=== PATIENT | male | born 1960 | race Caucasian/White ===

== ENCOUNTER 2022-01-06 13:09 | Emergency (ER) | payer OTHER, SELFPAY ==
--- NOTE | 2022-01-06 13:14 | XR_ITS ---
WS: [id number] Exam: XR ankle LT min 3V* [id number] Date/Time of Exam: 01/06/2022 1:19 PM Reason For Exam: trauma/injury There is a comminuted displaced fracture of the lower fibula with medial subluxation of the tibia upo n the talar dome. No other obvious fractures are noted. Soft tissue swelling and deformity about the ankle. XR/XR ankle LT min 3V* [id number] IMPRESSION: 1. Comminuted displaced lower fibular fracture with medial subluxation of the t ibia upon the talar dome.
[2022-01-06 13:34] VITALS: BP 120/80; PULSE 73; RESP 18; O2SAT 95; BMI 30.1
--- NOTE | 2022-01-06 13:37 | W.ED.LOWEXIN ---
Documented by User: ANTHONY Long 01/06/22 16:39 HPI - Extremity Injury (Lower) General: Chief Complaint: Fall Stated Complaint: L ANKLE DEFORMITY Time Seen by Provider: 01/06/22 13:14 Source: patient and EMS Mode of arrival: EMS Limitations: no limitations History of Present Illness: Patient is a nice 61-year-old male who presents to ED today for evaluation of a left ankle injury that he sustained just prior to arrival. Patient states he was walking when he got a little lightheaded causing him to trip and fall and states he got his left ankle caught between the washer and dryer. Reports obvious deformity to the ankle. Patient states he has had previous history of lightheadedness. He states he does not want any evaluation for this and just wants my ankle taking care of . Patient is not having any chest pain or shortness of breath. No palpitations. Patient is not having any lightheadedness or dizziness currently. MD complaint: ankle injury Onset (ago): hour(s) Injury: Left: ankle Place: home Severity: severe Relieving factors: immobilization Exacerbating factors: weight bearing, movement and palpation Context: fall Associated symptoms: Reports inability to bear weight Other symptoms: none Treatments prior to arrival: splint Review of Systems Const: Denies: fever(s), chills, body aches, fatigue or malaise Eyes: Denies: change in vision or blurry vision Card: Reports: lightheadedness (resolved now); Denies: chest pain, palpitations, irregular heart rhythm, edema, swelling of feet/ankles, syncope, pre-syncope, dyspnea on exertion, orthopnea, leg pain with exertion or acrocyanosis Resp: Denies: dyspnea GI: Denies: abdominal pain, nausea or vomiting Musc: Reports: joint pain (L ankle) and joint swelling (L ankle); Denies: neck pain, back pain, extremity pain or extremity swelling Neuro: Denies: headache(s), numbness in extremities, weakness in extremities or sensory changes [facility] ED PFSH: Medical History Diabetes mellitus Surgical History No pertinent past surgical history Social History Smoking and tobacco status: current every day smoker Physical Exam Const: COMMON NORMALS: no acute distress, average body habitus, patient oriented x3, no limitations, alert and well nourished ORIENTATION/CONSCIOUSNESS: Yes awake, Yes oriented to person, Yes oriented to place and Yes oriented to time HENMT: COMMON NORMALS: normocephalic and atraumatic HEAD & SCALP: normal to inspection, normocephalic and atraumatic Resp: COMMON NORMALS: normal respiratory effort and clear to auscultation bilaterally AUSCULTATION: clear to auscultation bilaterally Cardio: COMMON NORMALS: regular rate and regular rhythm RATE: regular rate RHYTHM: regular rhythm Back/Pelvis: COMMON NORMALS: thoracic and lumbar spine normal to inspection, no thoracic nor lumbar tenderness and thoraco-lumbar ROM normal Extremity: GENERAL: Yes normal exam except as noted LEFT LOWER EXTREMITY: Yes ankle joint (obvious deformity to medial L ankle) Left ankle: Yes ROM (limited due to deformity ) and Yes neurovascular exam (normal) Neuro: SHANE COMA SCALE: document GCS findings Shane coma scale eye opening: Spontaneous Paterson coma scale verbal response: Orientated Shane coma scale motor response: Obey commands Paterson coma scale total score: 15 COMMON NORMALS: patient oriented x3, moves all extremities, no focal motor deficits and no sensory deficits noted SENSORIUM/ORIENTATION: Yes alert, Yes oriented to person, Yes oriented to place and Yes oriented to time Procedures Orthopedic Joint Reduction Joint #1: Time Out Performed: Yes Side: left Joint Reduction Location: ankle Analgesia: procedural sedation (please refer to Dr. Chavez procedural sedation note) Technique used: traction/counter-traction Post-reduction neuro exam: intact Post-reduction vascular: intact Post Reduction X-Ray Obtained: Yes Post Reduction X-Ray Results: reduced Splint Applied: Yes Patient Tolerated Procedure: well Orthopedic Splinting/Casting Injury #1: Side: left Lower Extremity Injury Location: ankle Lower Extremity Immobilizer: posterior splint and stirrup splint Other Orthopedic Equipment: crutches Course Vital Signs: Vital signs: Vital Signs Pulse Rate 78 01/06/22 16:48 Respiratory Rate 25 H 01/06/22 16:48 Blood Pressure 125/86 01/06/22 16:48 Pulse Oximetry 99 01/06/22 16:48 MDM - Extremity Injury (Lower) Medical Decision Making Patient here with a left distal fibular fracture and tibial talar medial dislocation. Conscious sedation and reduction performed along with Dr. Chavez. Dislocation reduced in better alignment of fracture noted. Patient will be placed in a posterior splint/stirrup and given crutches and instructions for nonweightbearing, ice, elevation and we will get him set up with orthopedics/podiatry as soon as possible for further evaluation. Lab Data : 01/06/22 15:01 01/06/22 15:01 Radiology Impressions Ankle X-Ray 01/06/22 15:45 IMPRESSION: 1. Reduction of talotibial subluxation. Fracture distal fibula show significant improvement in position and alignment when compared to initial fracture radiographs. Laboratory Results WBC 10.9 10^3/uL (4.0-10.0) H 01/06/22 15:01 RBC 4.65 10^6/uL (4.1-5.3) 01/06/22 15:01 Hgb 14.2 g/dL (11.7-16.6) 01/06/22 15:01 Hct 45.4 % (42.0-52.0) 01/06/22 15:01 MCV 97.6 fl (80-94) H 01/06/22 15:01 MCH 30.5 pg (28.0-34.0) 01/06/22 15:01 MCHC 31.3 g/dL (30.0-36.0) 01/06/22 15:01 RDW 12.2 % (12.1-15.1) 01/06/22 15:01 Plt Count 366 10^3/cmm (130-400) 01/06/22 15:01 MPV 10.9 fL (7.4-10.4) H 01/06/22 15:01 Neut % (Auto) 50.0 % 01/06/22 15:01 Lymph % (Auto) 39.7 % 01/06/22 15:01 [place] % (Auto) 6.7 % 01/06/22 15:01 Eos % (Auto) 2.4 % 01/06/22 15:01 Baso % (Auto) 0.6 % 01/06/22 15:01 Neut # (Auto) 5.47 10^3/uL (1.8-7.7) 01/06/22 15:01 Lymph # (Auto) 4.3 10^3/uL (0.8-4.8) 01/06/22 15:01 [place] # (Auto) 0.7 10^3/uL (0.2-0.9) 01/06/22 15:01 Eos # (Auto) 0.3 10^3/uL (0.0-0.8) 01/06/22 15:01 Baso # (Auto) 0.1 10^3/uL (0.0-0.1) 01/06/22 15:01 Nucleated RBC % (auto) 0 % 01/06/22 15:01 Nucleated RBCs # 0.0 /100WBC 01/06/22 15:01 Sodium 136 mmol/L (136-145) 01/06/22 15:01 Potassium 4.3 mmol/L (3.5-5.1) 01/06/22 15:01 Chloride 98 mmol/L (98-107) 01/06/22 15:01 Carbon Dioxide 24 mmol/L (22-29) 01/06/22 15:01 Anion Gap 18.3 (5-19) 01/06/22 15:01 BUN 17 mg/dL (8-23) 01/06/22 15:01 Creatinine 1.3 mg/dL (0.7-1.2) H 01/06/22 15:01 GFR Calculation 56.3 mL/min (90-130) L 01/06/22 15:01 Glucose 187 mg/dL (65-115) H 01/06/22 15:01 Calculated Osmolality 288 mOsm/kg (285-295) 01/06/22 15:01 Calcium 10.2 mg/dL (8.5-10.5) 01/06/22 15:01 Total Bilirubin 0.2 mg/dL (0.15-1.2) 01/06/22 15:01 AST 18 U/L (0-40) 01/06/22 15:01 ALT 31 U/L (0-41) 01/06/22 15:01 Alkaline Phosphatase 75 IU/L (40-130) 01/06/22 15:01 Total Protein 7.9 g/dL (6.6-8.7) 01/06/22 15:01 Albumin 5.0 g/dL (3.5-5.2) 01/06/22 15:01 Globulin 2.9 g/dL (1.3-4.6) 01/06/22 15:01 Discharge Plan Discharge Patient Disposition: Home Clinical Impression: Closed dislocation of distal end of left tibia, Closed fracture of distal end of left fibula Condition: Stable Prescriptions: New hydrocodone-acetaminophen 5-325 mg tablet 1 tab PO .q4-6 PRN (Reason: pain) Qty: 20 0RF No Action Unable to Assess 0RF Discharge Orders: Discharge ED (Routine); Ordered 01/06/22 Ordered By: Merlene Villa Patient Instructions: Ankle Fracture (DC), Ankle Dislocation (ED), Opioid Safety Activity Restrictions/Additional Instructions: No weight bearing on extremity. As we discussed you need to ice and elevate your extremity as much as possible. Case management should contact you shortly to set you up with your follow-up orthopedic/podiatry appointment. You may take pain medications as needed for discomfort. Coding Level of Care Code ED Reinforcing Metal Worker for Chg Fwd Exam Detailed Documented by User: Gal Chavez DO 01/06/22 21:41 HPI - Extremity Injury (Lower) General: Chief Complaint: Fall Stated Complaint: L ANKLE DEFORMITY Time Seen by Provider: 01/06/22 13:14 [facility] ED PFSH: Medical History Diabetes mellitus Surgical History No pertinent past surgical history Social History Smoking and tobacco status: current every day smoker Physical Exam Neuro: SHANE COMA SCALE: document GCS findings Shane coma scale total score: 15 Procedures Procedural Sedation Indication: fracture/dislocation reduction Preparation: piped buttonhole machine operator applied, pulse oximeter, capnometry used, supplemental O2 applied, reversal agents at bedside, suction/airway equipment at bedside and IV secured IV Etomidate dose (mg): 15 Patient Tolerated Procedure: well Complications: none Additional Comments: Patient initially given 10 mg and then a subsequent 5 more milligrams because of discomfort tolerated well without complication. Oxygen and capnometry were placed on patient prior to the procedure and removed after the procedure was completed. Patient recovered without incident Course Vital Signs: Vital signs: Vital Signs Pulse Rate 78 01/06/22 16:48 Respiratory Rate 25 H 01/06/22 16:48 Blood Pressure 125/86 01/06/22 16:48 Pulse Oximetry 99 01/06/22 16:48 MDM - Extremity Injury (Lower) Medical Decision Making Patient here with a left distal fibular fracture and tibial talar medial dislocation. Conscious sedation and reduction performed along with Dr. Chavez. Dislocation reduced in better alignment of fracture noted. Patient will be placed in a posterior splint/stirrup and given crutches and instructions for nonweightbearing, ice, elevation and we will get him set up with orthopedics/podiatry as soon as possible for further evaluation. Chart reviewed and patient discussed with midlevel. Agree with assessment and plan. I performed conscious sedation on the patient see notes in the procedure. I also supervised and assisted with the reduction with ANTHONY Long. Lab Data : 01/06/22 15:01 01/06/22 15:01 Radiology Impressions Ankle X-Ray 01/06/22 15:45 IMPRESSION: 1. Reduction of talotibial subluxation. Fracture distal fibula show significant improvement in position and alignment when compared to initial fracture radiographs. Laboratory Results WBC 10.9 10^3/uL (4.0-10.0) H 01/06/22 15:01 RBC 4.65 10^6/uL (4.1-5.3) 01/06/22 15:01 Hgb 14.2 g/dL (11.7-16.6) 01/06/22 15:01 Hct 45.4 % (42.0-52.0) 01/06/22 15:01 MCV 97.6 fl (80-94) H 01/06/22 15:01 MCH 30.5 pg (28.0-34.0) 01/06/22 15:01 MCHC 31.3 g/dL (30.0-36.0) 01/06/22 15:01 RDW 12.2 % (12.1-15.1) 01/06/22 15:01 Plt Count 366 10^3/cmm (130-400) 01/06/22 15:01 MPV 10.9 fL (7.4-10.4) H 01/06/22 15:01 Neut % (Auto) 50.0 % 01/06/22 15:01 Lymph % (Auto) 39.7 % 01/06/22 15:01 [place] % (Auto) 6.7 % 01/06/22 15:01 Eos % (Auto) 2.4 % 01/06/22 15:01 Baso % (Auto) 0.6 % 01/06/22 15:01 Neut # (Auto) 5.47 10^3/uL (1.8-7.7) 01/06/22 15:01 Lymph # (Auto) 4.3 10^3/uL (0.8-4.8) 01/06/22 15:01 [place] # (Auto) 0.7 10^3/uL (0.2-0.9) 01/06/22 15:01 Eos # (Auto) 0.3 10^3/uL (0.0-0.8) 01/06/22 15:01 Baso # (Auto) 0.1 10^3/uL (0.0-0.1) 01/06/22 15:01 Nucleated RBC % (auto) 0 % 01/06/22 15:01 Nucleated RBCs # 0.0 /100WBC 01/06/22 15:01 Sodium 136 mmol/L (136-145) 01/06/22 15:01 Potassium 4.3 mmol/L (3.5-5.1) 01/06/22 15:01 Chloride 98 mmol/L (98-107) 01/06/22 15:01 Carbon Dioxide 24 mmol/L (22-29) 01/06/22 15:01 Anion Gap 18.3 (5-19) 01/06/22 15:01 BUN 17 mg/dL (8-23) 01/06/22 15:01 Creatinine 1.3 mg/dL (0.7-1.2) H 01/06/22 15:01 GFR Calculation 56.3 mL/min (90-130) L 01/06/22 15:01 Glucose 187 mg/dL (65-115) H 01/06/22 15:01 Calculated Osmolality 288 mOsm/kg (285-295) 01/06/22 15:01 Calcium 10.2 mg/dL (8.5-10.5) 01/06/22 15:01 Total Bilirubin 0.2 mg/dL (0.15-1.2) 01/06/22 15:01 AST 18 U/L (0-40) 01/06/22 15:01 ALT 31 U/L (0-41) 01/06/22 15:01 Alkaline Phosphatase 75 IU/L (40-130) 01/06/22 15:01 Total Protein 7.9 g/dL (6.6-8.7) 01/06/22 15:01 Albumin 5.0 g/dL (3.5-5.2) 01/06/22 15:01 Globulin 2.9 g/dL (1.3-4.6) 01/06/22 15:01 Discharge Plan Discharge Patient Disposition: Home Clinical Impression: Closed dislocation of distal end of left tibia, Closed fracture of distal end of left fibula Condition: Stable Prescriptions: New hydrocodone-acetaminophen 5-325 mg tablet 1 tab PO .q4-6 PRN (Reason: pain) Qty: 20 0RF No Action Unable to Assess 0RF Discharge Orders: Discharge ED (Routine); Ordered 01/06/22 Ordered By: Merlene Villa Patient Instructions: Ankle Fracture (DC), Ankle Dislocation (ED), Opioid Safety Activity Restrictions/Additional Instructions: No weight bearing on extremity. As we discussed you need to ice and elevate your extremity as much as possible. Case management should contact you shortly to set you up with your follow-up orthopedic/podiatry appointment. You may take pain medications as needed for discomfort. Coding Level of Care Code ED Reinforcing Metal Worker for Sejal Fwd Exam Detailed
[2022-01-06 13:43] VITALS: RESP 16; O2SAT 96
[2022-01-06] MEDS: morphine 4 mg/mL SDV 1 mL IVP (13:43)
--- NOTE | 2022-01-06 14:38 | ECG_ITS ---
[facility] Test Date: 2022-01-06 Pat Name: Ismael Richards Department: Room: Gender: Male Medical Appointment Clerk: : 1960 Requested By: Merlene Villa Order Number: [id number] England MD: Mauri Mulligan M.D. Measurements Intervals [place] Rate: 74 P: 58 [place]: 172 QRS: 64 QRSD: 106 T: 69 QT: 374 QTc: 416 Interpretive Statements SINUS RHYTHM WITH SINUS ARRHYTHMIA Compared to ECG 06/08/2019 15:27:15 No significant changes Electronically Signed On 01-06-2022 20:20:40 CDT by Mauri Mulligan M.D. [email or web address]
[2022-01-06 15:12] LABS: Basophils # 0.1 10^3/uL (0.0-0.1); Basophils % 0.6 %; Eosinophils # 0.3 10^3/uL (0.0-0.8); Eosinophils % 2.4 %; Hematocrit 45.4 % (42.0-52.0); Hemoglobin 14.2 g/dL (11.7-16.6); Lymphocytes # 4.3 10^3/uL (0.8-4.8); Lymphocytes % 39.7 %; Mean Corpuscular HGB Conc 31.3 g/dL (30.0-36.0); Mean Corpuscular Hemoglobin 30.5 pg (28.0-34.0); Mean Corpuscular Volume 97.6 fl (80-94); Mean Platelet Volume 10.9 fL (7.4-10.4); Monocytes # 0.7 10^3/uL (0.2-0.9); Monocytes % 6.7 %; Neutrophils # 5.47 10^3/uL (1.8-7.7); Nucleated Red Blood Cells % 0 %; Platelet Count 366 10^3/cmm (130-400); Red Blood Count 4.65 10^6/uL (4.1-5.3); Red Cell Distribution Width 12.2 % (12.1-15.1); White Blood Count 10.9 10^3/uL (4.0-10.0)
--- NOTE | 2022-01-06 15:45 | XR_ITS ---
WS: [id number] Exam: XR ankle LT 2V [id number] Date/Time of Exam: 01/06/2022 3:52 PM Reason For Exam: fracture Comparison same day at 0148 p.M. Previously noted fractured fibula shows a improved position and alignment. Talotibial subluxation has been reduced. Soft tissue swelling about the ankle. XR/XR ankle LT 2V [id number] IMPRESSION: 1. Reduction of talotibial subluxation. Fracture distal fibula show significant improvement in position and alignment when compared to initial fracture radiog raphs.
--- NOTE | 2022-01-06 16:09 | DCPLANNER ---
Addendum entered by Claudia Pulido 01/08/22 12:58: Patient had a follow up appointment scheduled for 01.07.[address] Foster at ortho - patient did attend appointment. Original Note: manager personal had message to schedule a follow up appointment for patient with ortho. manager personal sent patients information to the front office staff at ortho. Patients information will be printed and reviewed. Clinic will call patient with appointment information.
[2022-01-06 16:23] VITALS: BP 126/83; PULSE 82; RESP 22; O2SAT 96
--- NOTE | 2022-01-06 16:42 | PC.NURSE ---
Left ankle Reduction Procedure began at 1535 Vital Signs: HR- 80 SPO2- 99% RR- 27, 2L NC BP- 129/83 1539 10mg etomidate 1540 5mg HR- 92 SPO2- 95% 2L NC RR-28 BP- 138/91 1545 BP- 125/86 HR-78 SPO2- 98% 2L NC RR- 25 Patient awoke from sedation, condition stable. Patient was discharged after
[2022-01-06 16:48] VITALS: BP 125/86; PULSE 78; RESP 25; O2SAT 99
[2022-01-06 16:55] LABS: Alanine Aminotransferase 31 U/L (0-41); Alkaline Phosphatase 75 IU/L (40-130); Anion Gap 18.3 (5-19); Aspartate Amino Transferase 18 U/L (0-40); Blood Urea Nitrogen 17 mg/dL (8-23); Calcium 10.2 mg/dL (8.5-10.5); Carbon Dioxide 24 mmol/L (22-29); Chloride 98 mmol/L (98-107); Globulin 2.9 g/dL (1.3-4.6); Glomerular Filtration Rate 56.3 mL/min (90-130); Glucose 187 mg/dL (65-115); Osmolality Calculated 288 mOsm/kg (285-295); Potassium 4.3 mmol/L (3.5-5.1); Sodium 136 mmol/L (136-145); Total Bilirubin 0.2 mg/dL (0.15-1.2); Total Protein 7.9 g/dL (6.6-8.7)
== END 2022-01-06 16:51 | disposition home or self-care (01) ==
PROVIDERS: Emergency Provider Physician Assistant
DX: S82.832A Other fracture of upper and lower end of left fibula, initial encounter for closed fracture (principal); S93.05XA Dislocation of left ankle joint, initial encounter; W01.0XXA Fall on same level from slipping, tripping and stumbling without subsequent striking against object, initial encounter
CPT/HCPCS: 27840; 73600; 73610; 80053; 85025; 93005; 96374; 96375; 99152; 99284; E0114; J2270; J3490

== ENCOUNTER → 2022-01-07 09:15 | Outpatient (BNVA) | payer OTHER, SELFPAY | PROVIDERS: Referring Provider Physician Assistant; Visit Provider Podiatrist Foot & Ankle Surgery | DX: S82.842A Displaced bimalleolar fracture of left lower leg, initial encounter for closed fracture (principal); W19.XXXA Unspecified fall, initial encounter; M25.572 Pain in left ankle and joints of left foot | CPT/HCPCS: 99204 ==

== ENCOUNTER 2022-01-07 14:50 | Outpatient (CLI) | payer OTHER, SELFPAY | END 2022-01-07 14:51 | disposition home or self-care (01) | LOC: SPT 14:50 | PROVIDERS: Visit Provider Podiatrist Foot & Ankle Surgery | DX: Z46.89 Encounter for fitting and adjustment of other specified devices (principal); S93.05XD Dislocation of left ankle joint, subsequent encounter; S82.832D Other fracture of upper and lower end of left fibula, subsequent encounter for closed fracture with routine healing; X58.XXXD Exposure to other specified factors, subsequent encounter | CPT/HCPCS: 97760; 99204; L4361 ==

== ENCOUNTER 2022-01-15 07:17 | Day surgery (SDC) | payer OTHER, SELFPAY ==
[2022-01-14 10:18] VITALS: BMI 30.1
[2022-01-15] VITALS (11 sets, daily range): BP systolic 119–149; BP diastolic 77–100; PULSE 67–84; RESP 16–18; TEMP 36.2–37; O2SAT 91–97
--- NOTE | 2022-01-15 | SCC_ITS ---
Procedure done: Open reduction internal fixation left bimalleolar fracture. CPT 72179 2 seconds of fluoroscopic guidance, for a cumulative dose of 0.058 mGy, was provided to Dr. Foster by the radiology department. C-arm images of the LEFT ankle were saved for the patient's permanent record. [facility]
[2022-01-15] MEDS: sodium chloride 0.9% 1,000 ML 30 ML IV (07:42)
[2022-01-15 07:53] LABS: Glucose Point of Care 235 mg/dL (70-110)
[2022-01-15 08:18] LABS: Anion Gap 14.8 (5-19); Blood Urea Nitrogen 19 mg/dL (8-23); Calcium 9.8 mg/dL (8.5-10.5); Carbon Dioxide 27 mmol/L (22-29); Chloride 99 mmol/L (98-107); Glucose 238 mg/dL (65-115); Osmolality Calculated 292 mOsm/kg (285-295); Potassium 4.8 mmol/L (3.5-5.1); Sodium 136 mmol/L (136-145)
[2022-01-15] MEDS: fentaNYL 50 mcg/mL INJ 2mL IVP ×3 (08:57→09:17)
--- NOTE | 2022-01-15 09:16 | W.PM.OPSUD ---
Surgery/Procedure H&P Update DATE OF PROCEDURE: January 15, 2022 DATE H&P PERFORMED: 01/07/22 CHANGES TO PREVIOUS DOCUMENTATION: None PREOP DIAGNOSIS: Left bimalleolar fracture PLANNED PROCEDURE: Operation Date: 01/15/22 08:55 Proposed Procedures p Open reduction internal fixation left bimalleolar fracture- S82.841A 72500(Left) - Ab Foster DPM
--- NOTE | 2022-01-15 09:22 | SUR.PREOP ---
0915-timeout was performed at bedside with Dr Kimbrough, nerve block was performed and patient tolerated well
--- NOTE | 2022-01-15 09:32 | ANES.PREANE2 ---
Pre-Anesthetic Assessment Height/Weight: Height 1.78 m Weight 95.254 kg Temp Pulse Resp BP Pulse Ox 98.6 F 84 18 134/91 95 01/15/22 08:01 01/15/22 08:01 01/15/22 08:57 01/15/22 08:01 01/15/22 08:57 Preop Diagnosis: Left bimalleolar fracture Operation Date: 01/15/22 08:55 Proposed Procedures p Open reduction internal fixation left bimalleolar fracture- S82.871Z, 88662(Left) - Ab Foster DPM Familial anesthetic complications: None Was Beta Mahogany taken within 24 hours: N/A Was Clonidine taken within 24 hours: N/A Last intake: Intake Last Liquid Date 01/14/22 Last Liquid Time 23:30 Last Solid Date 01/14/22 Last Solid Time 23:30 Social No alcohol and No tobacco Exam alert, oriented x 3, clear to auscultation bilaterally and regular rate & rhythm Airway Submandibular: within normal limits Cervical ROM: within normal limits Mallampati: Class II Dentition: chipped Comments: Comments: Poor missing most Pulmonary Chronic Obstructive Pulmonary Disease Metabolic Diabetes Mellitus, Hyperlipidemia and Morbid Obesity Neuropsych Neuropathy Anesthetic Plan ASA status: 3 Anesthesia: General and Regional (specify below) (Left popliteal nerve blk) Medications/Allergies Home Medications Medication Instructions Recorded Confirmed Last Taken Type hydrocodone 5 mg-acetaminophen 325 1 tab PO .q4-6 PRN #20 tab 01/06/22 01/15/22 01/14/22 23:00 Rx mg tablet Cam Boot to the Left #1 ea 01/07/22 01/07/22 Unknown Rx Wheel Chair #1 ea 01/07/22 01/07/22 Unknown Rx aripiprazole 5 mg tablet (Abilify) 5 mg PO DAILY 01/14/22 01/15/22 01/14/22 23:30 History atorvastatin 40 mg tablet 40 mg PO DAILY 01/14/22 01/15/22 01/14/22 17:00 History doxepin 50 mg capsule 50 mg PO DAILY 01/14/22 01/15/22 01/14/22 19:00 History duloxetine 60 mg capsule,delayed 90 mg PO DAILY 01/14/22 01/15/22 01/14/22 06:00 History release glipizide 5 mg tablet 5 mg PO BID 01/14/22 01/15/22 01/14/22 05:30 History metformin 1,000 mg tablet 1,000 mg PO BID 01/14/22 01/15/22 01/14/22 05:30 History mirtazapine 15 mg tablet 15 mg PO DAILY 01/14/22 01/15/22 01/14/22 05:30 History Allergies Allergy/AdvReac Type Severity Reaction Status Date / Time No Known Allergies Allergy Verified 01/15/22 07:34 Current Medications Generic Name Dose Route Start Last Admin Trade Name Freq PRN Reason Stop Dose Admin Fentanyl 50 mcg 01/15/22 08:50 01/15/22 09:17 Fentanyl 50 Mcg/Ml Inj 2ml IVP 50 mcg Q10M PRN Administration Preop Pain PFS Anesthesia Medical History Diabetes mellitus Surgical History No pertinent past surgical history Social History Smoking and tobacco status: current every day smoker Data Anesthesia : 01/15/22 07:50 BMP 01/15/22 07:50 Sodium 136 Potassium 4.8 Chloride 99 Carbon Dioxide 27 BUN 19 Creatinine 1.0 Glucose 238 H Calcium 9.8 Cardiac Studies: No Data to Display
--- NOTE | 2022-01-15 09:34 | ANES.PROC ---
Anesthesia Procedures Procedure/Date: 01/15/22 Nerve Block ^: Nerve Block 1: Main Anesthesia: general anesthesia Time Out Performed: Yes Consent: requested by attending/covering physician, from patient, risks and benefits reviewed and patient agrees to proceed Nerve block location: popliteal (left) Anesthesia monitors applied: pulse oximetry, EKG and BP cuff Nerve block position: semi sitting Anesthetic Used: ropivicaine 0.5% Amount of anesthesia used (mL): 30 Ultrasound used to: recognize landmarks Nerve Stimulator Used?: No Interscalene/Femoral BLK: 4 stimuplex 21 g needle used for position and inplane approach Injection: neg aspiration of heme Patient Tolerated Procedure: well Complications: none
[2022-01-15] MEDS: ceFAZolin 1,000 mg SDV 1000 MG IRRIGATION (10:16)
--- NOTE | 2022-01-15 10:42 | XR_ITS ---
WS: [id number] Left ankle, 3 views, 01/15/2022 Clinical Data: post op Comparison: Left ankle, 01/06/2022. Findings: Internal fixation of a distal left fibular fracture with a plate and screws is seen. The ankle mortis e is in good position. There are subcutaneous surgical ricky adjacent to the distal lateral fibula. XR/XR ankle LT min 3V* [id number] Impression: Internal fixation of distal left fibular fracture.
[2022-01-15] MEDS: HYDROcodone-acetaminophen 10-325 mg Tablet 1 TAB PO (11:27)
--- NOTE | 2022-01-15 11:36 | P.OP_ITS ---
Operative Report Date of procedure: January 15, 2022 Pre-op diagnosis: Left bimalleolar fracture Post-op diagnosis: Same Post-op findings: No syndesmotic disruption with cotton hook test under live fluoroscopy Procedure done: Open reduction internal fixation left bimalleolar fracture. CPT 62621 Implants: [place] anatomic fibular plate and 3.5 mm locking screws, 2-0 Vicryl, 3-0 Vicryl and skin ricky Specimens removed/disposition: None Surgeon: Ab Foster D.P.M. Healthcare Consultant: Arianna Estimated blood loss: 5 See intraoperative documentation IV fluids: None Urine output: None Complications: None Findings: No syndesmotic disruption Brief History: Left bimalleolar equivalent fracture with dislocation of the talus laterally out of the ankle mortise, successful closed reduction under sedation performed in the emergency department with posterior splint and sugar-tong.? Patient utilizing wheelchair and has remained nonweightbearing.? Fell at home after getting lightheaded and got wedged between the washer and dryer, date of injury 01/06/2022. Patient examined and evaluated, findings and treatment options were discussed with patient and his at length.? He has a unstable bimalleolar equivalent left ankle fracture.? Discussed need for open reduction internal fixation as a means of stabilizing his fracture and maintaining reduction postoperatively.? Not pursuing surgical intervention could lead to long-term instability, nonunion and malunion.? Also discussed high likelihood of posttraumatic arthritis as a result of this injury both with and without surgery.? Patient and his are agreeable and wished to proceed with surgery at next available opportunity.? Will allow soft tissue to resolve and subsidence of edema.? Plan for outpatient ORIF of left ankle fracture 01/15/2022 under general anesthesia.? Risks include but is not limited to pain, bleeding, numbness, infection, hardware failure, delayed union, malunion, nonunion, surgical site dehiscence, posttraumatic arthritis of the left ankle joint and need for further surgical intervention and advanced bracing as well as physical therapy. Procedure: Under mild sedation the patient was brought to the operating room and placed on the operating table in supine position. A timeout was performed. Anesthesia was then administered by the anesthesia service. Also popliteal block performed per anesthesia preoperatively. 0.5% Marcaine plain 5 cc utilized to perform saphenous nerve block. Well-padded pneumatic tourniquet applied high calf to the left lower extremity. The left lower extremity was then scrubbed, prepped and draped utilizing normal aseptic technique. Left foot was then exanguinated with an Esmarch bandage and the tourniquet inflated to 250 mmHg. Linear longitudinal incision was made over the lateral malleolus with a #15 blade with blunt and sharp dissection carried down through subcutaneous tissue to the layer of periosteum. Periosteal incision was made exposing a comminuted fracture of the lateral malleolus left ankle this was evacuated of hematoma utilizing curettage and flush with saline solution. Fracture was reduced anato mically utilizing traction and [id number] fracture reduction forceps followed by fixation utilizing standard AO technique, fixation achieved via [place] anatomic fibular plate with 3.5 mm locking screws with excellent bony apposition and compression noted. Fracture was anatomically reduced, distal fibula was pulled out to length and derotated and noted to be congruent with an ankle mortise without being violated with proper hardware. Cotton hook test employed intraoperatively under live fluoroscopy showed intact syndesmosis without diastases at the tib-fib clear space. Incision was flushed with copious amounts of sterile saline solution. Closed in a layered fashion with periosteum reapproximated with 2-0 Vicryl. Subcutaneous tissue with 3-0 Vicryl and skin with ricky. Adaptic, sterile 4 x 4's, Kerlix and Santo wrap applied as surgical dressings followed by application of cam boot. Tourniquet was deflated and a prompt hyperemic response was noted to the distal digits of the left foot. Patient tolerated the procedure and anesthesia well and was transferred to the PACU with vital signs stable and vascular status intact. Following a period of postoperative monitoring he will be discharged home is to remain strict nonweightbearing to left lower extremity and will follow-up in podiatry clinic next Joe for dressing change.
--- NOTE | 2022-01-15 13:13 | ANE.PACU2 ---
Inpatient post-anesthesia follow up: Airway intact: Yes Vital signs: Temperature 97.5 F Pulse Rate 78 Respiratory Rate 17 Blood Pressure 143/85 Pulse Oximetry 94 Oxygen Delivery Me thod Room Air Oxygen Flow Rate Fraction of Inspir ed Oxygen Hydration adequate: Yes Nausea and vomiting: No Pain level: 3 Mental status: Baseline
== END 2022-01-15 11:44 | disposition home or self-care (01) ==
PROVIDERS: Anesthesiology; Visit Provider Podiatrist Foot & Ankle Surgery
PROC: (CPT 27814; principal; 2022-01-15 08:55)
DX: S82.842A Displaced bimalleolar fracture of left lower leg, initial encounter for closed fracture (principal); W19.XXXA Unspecified fall, initial encounter; Y92.009 Unspecified place in unspecified non-institutional (private) residence as the place of occurrence of the external cause; J44.9 Chronic obstructive pulmonary disease, unspecified; E78.5 Hyperlipidemia, unspecified; E66.01 Morbid (severe) obesity due to excess calories; Z68.30 Body mass index [BMI] 30.0-30.9, adult; E11.40 Type 2 diabetes mellitus with diabetic neuropathy, unspecified; F17.200 Nicotine dependence, unspecified, uncomplicated
CPT/HCPCS: 27814; 36415; 36416; 64450; 73610; 76000; 76942; 80048; 82962; C1713; J0690; J2250; J2405; J2704; J2795; J3010; J3490; J7030

== ENCOUNTER → 2022-01-22 08:42 | Outpatient (BNVA) | payer OTHER, SELFPAY | PROVIDERS: Visit Provider Podiatrist Foot & Ankle Surgery | DX: Z98.890 Other specified postprocedural states (principal) | CPT/HCPCS: 99024; A6219 ==

== ENCOUNTER → 2022-02-04 15:03 | Outpatient (BNVA) | payer OTHER, SELFPAY | PROVIDERS: PCP Nurse Practitioner; Visit Provider Podiatrist Foot & Ankle Surgery | DX: Z98.890 Other specified postprocedural states (principal); S82.842A Displaced bimalleolar fracture of left lower leg, initial encounter for closed fracture; W19.XXXA Unspecified fall, initial encounter; Y92.009 Unspecified place in unspecified non-institutional (private) residence as the place of occurrence of the external cause; M25.572 Pain in left ankle and joints of left foot | CPT/HCPCS: 73610; 99024 ==

== ENCOUNTER → 2022-02-24 14:32 | Outpatient (BNVA) | payer OTHER, SELFPAY | PROVIDERS: PCP Nurse Practitioner; Visit Provider Podiatrist Foot & Ankle Surgery | DX: Z98.890 Other specified postprocedural states (principal); S82.842A Displaced bimalleolar fracture of left lower leg, initial encounter for closed fracture; M25.572 Pain in left ankle and joints of left foot; W19.XXXA Unspecified fall, initial encounter; Y92.009 Unspecified place in unspecified non-institutional (private) residence as the place of occurrence of the external cause | CPT/HCPCS: 73610; 99024 ==

== ENCOUNTER → 2022-03-11 14:01 | Outpatient (BNVA) | payer OTHER, SELFPAY | PROVIDERS: PCP Nurse Practitioner; Visit Provider Podiatrist Foot & Ankle Surgery | DX: M25.572 Pain in left ankle and joints of left foot (principal) | CPT/HCPCS: 73610 ==

== ENCOUNTER 2022-03-11 14:34 | Outpatient (CLI) | payer OTHER, SELFPAY | END 2022-03-11 14:35 | disposition home or self-care (01) | LOC: SPT 14:34 | PROVIDERS: PCP Nurse Practitioner; Visit Provider Podiatrist Foot & Ankle Surgery | DX: Z47.89 Encounter for other orthopedic aftercare (principal); M25.572 Pain in left ankle and joints of left foot; Z98.890 Other specified postprocedural states; S82.842A Displaced bimalleolar fracture of left lower leg, initial encounter for closed fracture; W19.XXXA Unspecified fall, initial encounter; Y92.009 Unspecified place in unspecified non-institutional (private) residence as the place of occurrence of the external cause | CPT/HCPCS: 97760; 99024; L1902 ==

== ENCOUNTER → 2022-04-08 14:24 | Outpatient (BNVA) | payer OTHER, SELFPAY | PROVIDERS: PCP Nurse Practitioner; Visit Provider Podiatrist Foot & Ankle Surgery | DX: Z98.890 Other specified postprocedural states (principal); S82.842D Displaced bimalleolar fracture of left lower leg, subsequent encounter for closed fracture with routine healing; W19.XXXD Unspecified fall, subsequent encounter; Y92.009 Unspecified place in unspecified non-institutional (private) residence as the place of occurrence of the external cause | CPT/HCPCS: 99024 ==

== ENCOUNTER → 2022-08-19 09:01 | Outpatient (BNVA) | payer OTHER, SELFPAY | PROVIDERS: PCP Nurse Practitioner; Visit Provider Urology | DX: N52.9 Male erectile dysfunction, unspecified (principal); E11.40 Type 2 diabetes mellitus with diabetic neuropathy, unspecified | CPT/HCPCS: 81003; 99203 ==

== ENCOUNTER → 2023-03-29 14:16 | Outpatient (BNVA) | payer OTHER, SELFPAY | PROVIDERS: PCP Nurse Practitioner; Visit Provider Dermatology | DX: L57.0 Actinic keratosis (principal); L21.8 Other seborrheic dermatitis; L81.4 Other melanin hyperpigmentation; L82.1 Other seborrheic keratosis; L73.8 Other specified follicular disorders; D22.39 Melanocytic nevi of other parts of face | CPT/HCPCS: 17000; 17003; 99213 ==

== ENCOUNTER → 2023-04-26 09:13 | Outpatient (BNVA) | payer OTHER, SELFPAY | PROVIDERS: PCP Nurse Practitioner; Visit Provider Podiatrist Foot & Ankle Surgery | DX: E11.40 Type 2 diabetes mellitus with diabetic neuropathy, unspecified (principal); Z79.4 Long term (current) use of insulin; L60.3 Nail dystrophy; Z79.84 Long term (current) use of oral hypoglycemic drugs | CPT/HCPCS: 99213 ==

== ENCOUNTER 2023-05-10 06:03 | Outpatient (CLI) | payer OTHER, SELFPAY ==
--- NOTE | 2023-05-10 | US_ITS ---
WS: [id number] RIGHT UPPER QUADRANT ULTRASOUND HISTORY: ELEVATED LFT'S COMPARISON: None available. Liver: 19.8 cm in length. Markedly enlarged liver with variable echogenicity. There is marked attenua tion. The entire liver is not very well visualized due to attenuation. The liver is probably greater than measured. No mass identified. Portal Vein: Normal hepatopetal flow with monophasic waveform. Gallbladder: Normally distended gallbladder with no stones or wall thickening. CBD: 0.3 cm Pancreas: Tail of the pancreas obscured by bowel gas. Right kidney: 12.1 cm in length. Normal size and echogenicity. No hydronephrosis or mass. Aorta and IVC: Unremarkable abdominal aorta and IVC. No ascites. IMPRESSION: 1. Difficult evaluation of the RIGHT upper quadrant due to body habitus. 2. Markedly enlarged liver with severe attenuation secondary to hepatic steatosis. 2. Negative gallbladder. 3. Distal pancreatic tail is not visualized due to bowel gas.
== END 2023-05-10 06:04 | disposition home or self-care (01) ==
LOC: RAD 06:04
PROVIDERS: PCP Nurse Practitioner; Visit Provider Nurse Practitioner
DX: R79.89 Other specified abnormal findings of blood chemistry (principal); K76.0 Fatty (change of) liver, not elsewhere classified; R16.0 Hepatomegaly, not elsewhere classified
CPT/HCPCS: 76705

== ENCOUNTER → 2023-07-12 09:59 | Outpatient (BNVA) | payer OTHER, SELFPAY | PROVIDERS: PCP Nurse Practitioner; Visit Provider Physician Assistant | DX: S83.91XA Sprain of unspecified site of right knee, initial encounter; X58.XXXA Exposure to other specified factors, initial encounter | CPT/HCPCS: 73560; 73565; 99213 ==

== ENCOUNTER 2023-07-12 13:23 | Outpatient (CLI) | payer OTHER, SELFPAY | END 2023-07-12 13:24 | disposition home or self-care (01) | LOC: SPT 13:23 | PROVIDERS: PCP Nurse Practitioner; Visit Provider Physician Assistant | DX: Z46.89 Encounter for fitting and adjustment of other specified devices (principal); S83.91XD Sprain of unspecified site of right knee, subsequent encounter; X58.XXXD Exposure to other specified factors, subsequent encounter | CPT/HCPCS: 97760; L1812 ==

== ENCOUNTER → 2023-08-02 08:16 | Outpatient (BNVA) | payer OTHER, SELFPAY | PROVIDERS: PCP Nurse Practitioner; Visit Provider Podiatrist Foot & Ankle Surgery | DX: E11.40 Type 2 diabetes mellitus with diabetic neuropathy, unspecified (principal); Z79.4 Long term (current) use of insulin; L60.3 Nail dystrophy; I73.9 Peripheral vascular disease, unspecified; L84 Corns and callosities; Z79.84 Long term (current) use of oral hypoglycemic drugs | CPT/HCPCS: 11056; 11721 ==

== ENCOUNTER → 2023-09-15 13:17 | Outpatient (BNVA) | payer OTHER, SELFPAY | PROVIDERS: PCP Nurse Practitioner; Visit Provider Physician Assistant | DX: S83.91XA Sprain of unspecified site of right knee, initial encounter (principal); X58.XXXA Exposure to other specified factors, initial encounter | CPT/HCPCS: 99213 ==

== ENCOUNTER 2023-11-01 20:00 | Outpatient (CLI) | payer OTHER, SELFPAY | END 2023-11-01 20:01 | disposition home or self-care (01) | LOC: SLEEP 11-02 04:53 | PROVIDERS: PCP Nurse Practitioner; Visit Provider Nurse Practitioner | DX: E11.40 Type 2 diabetes mellitus with diabetic neuropathy, unspecified (principal); G47.33 Obstructive sleep apnea (adult) (pediatric); G47.34 Idiopathic sleep related nonobstructive alveolar hypoventilation; L60.3 Nail dystrophy; L84 Corns and callosities; Z79.4 Long term (current) use of insulin; I73.9 Peripheral vascular disease, unspecified; Z79.84 Long term (current) use of oral hypoglycemic drugs | CPT/HCPCS: 11056; 11721; 95810 ==

== ENCOUNTER → 2024-01-31 07:24 | Outpatient (BNVA) | payer OTHER, SELFPAY | PROVIDERS: PCP Nurse Practitioner; Visit Provider Podiatrist Foot & Ankle Surgery | DX: E11.40 Type 2 diabetes mellitus with diabetic neuropathy, unspecified (principal); Z79.4 Long term (current) use of insulin; L60.3 Nail dystrophy; I73.9 Peripheral vascular disease, unspecified; Z79.84 Long term (current) use of oral hypoglycemic drugs | CPT/HCPCS: 99213 ==

== ENCOUNTER 2024-04-11 06:57 | Outpatient (CLI) | payer OTHER, SELFPAY ==
[2024-04-11 07:06] VITALS: BMI 30.1
--- NOTE | 2024-04-11 07:09 | ECG_ITS ---
[facility] Test Date: 2024-04-11 Pat Name: Ismael Richards Department: Room: Gender: Male Assistant Professor Of Business: Yobany Phillips : 1960 Requested By: Kelley Allen Order Number: [id number] Samanta MD: MERI MUHAMMAD Interpretive Statements NAME OF STUDY: LEXISCAN SESTAMIBI STRESS TEST INDICATION: fatigue, weakness on exertion NOTE: Please note that this is the electrocardiogram portion of the Lexiscan/Sestamibi stress test. The perfusion scan will be documented separately. DATA: Baseline heart rate was 61 beats per minute. Baseline blood pressure was 121/79 millimeters of mercury. Target heart rate was 156. Maximum heart rate achieved was 108. which was 56% of the predicted target heart rate. Maximum blood pressure was 149/95 millimeters of mercury. The reason for ending the test was completion of the protocol. The patient did not experience any symptoms. ELECTROCARDIOGRAM: BASELINE: Sinus rhythm. Normal axis. Otherwise, no ST-T changes suggestive of ischemia noted. No arrhythmia noted. EXERCISE: After Lexiscan injection, no ST-T changes suggestive of ischemic noted. No arrhythmia noted. CONCLUSION: Please note due to baseline abnormality of the EKG specificity and sensitivity of the EKG portion of LexiScan MIBI stress test will be low 1. EKG not suggestive of ischemia 2. Lexiscan injection unremarkable. 3. Perfusion scan will be documented separately. Electronically Signed On 04-12-2024 19:37:47 CDT by MERI MUHAMMAD [id number]
--- NOTE | 2024-04-11 07:10 | NMCV_ITS ---
NM michelet perf SPECT r/s* [id number] Ismael Richards Age: 64 Gender: M : 1960 Exam Date: 04/11/2024 07:55 Ordering Phys: Kelley Fritz Technologist: DOROTA Le Exam Location: [facility] Indications: Fatigue.weakness with exertion STRESS TEST Please see separate stress test report in [facility] for full findings IMAGE PROTOCOL Rest/Stress 1 Lexiscan Day Radiopharmaceutical Dose (mCi) Administration Site Administered by Rest: Tc-99m 11.0 IV DOROTA Mathews Sestamibi Stress:Tc-99m 32.9 IV DOROTA Mathews Sestamibi Rest: 11-Apr-2024 60 Discovery 630 Stress: 11-Apr-2024 30 Discovery 630 0.4mg Lexiscan. Images obtained in supine and prone position. SPECT RESULTS Technical Quality: Good Raw Data Analysis: Normal Image Corrections: No attenuation or motion correction applied Summed Stress Score: 7 Summed Rest Score: 3 Summed Difference Score: 4 PERFUSION FINDINGS FUNCTIONAL RESULTS (calculated via Gated SPECT) Stress Image LV EF (%): 59 Stress EDV (mL):97 TID: 1.27 Stress ESV (mL):40 FUNCTIONAL FINDINGS: There is normal left ventricular systolic function. IMPRESSIONS Large area of fixed perfusion defect involving inferior , inferoseptal and inferolateral wall surrounded by moderate area if reversibility extending into inferoapical region suggestive of old myocardial infarction with moderate periinfarct ischemia . TID ration is elevated which could be due to LVH, however cannot rule out multivessel coronary artery disease. This is a positive nuclear portion of stress test for ischemia, EKG segment will be reported separately Olivier Clayton MD (Electronically Signed) Final Date: 11 April 2024 11:16 S
[2024-04-11] MEDS: regadenoson 0.4 Mg/5 ml Syringe IVP (08:30)
[2024-04-11 08:48] VITALS: BP 134/78; PULSE 88
== END 2024-04-11 06:58 | disposition home or self-care (01) ==
PROVIDERS: PCP Nurse Practitioner; Visit Provider Nurse Practitioner
DX: R53.83 Other fatigue (principal); R94.39 Abnormal result of other cardiovascular function study
CPT/HCPCS: 36415; 78452; 93017; 96374; A9500; J2785

== ENCOUNTER → 2024-04-24 08:46 | Outpatient (BNVA) | payer OTHER, SELFPAY | PROVIDERS: PCP Nurse Practitioner; Visit Provider Nurse Practitioner Family | DX: L57.0 Actinic keratosis (principal); L21.8 Other seborrheic dermatitis; L81.4 Other melanin hyperpigmentation; L82.1 Other seborrheic keratosis; L73.8 Other specified follicular disorders; D22.39 Melanocytic nevi of other parts of face; D48.5 Neoplasm of uncertain behavior of skin | CPT/HCPCS: 11102; 17000; 99214 ==

== ENCOUNTER → 2024-06-06 13:58 | Outpatient (BNVA) | payer OTHER, SELFPAY | PROVIDERS: PCP Nurse Practitioner; Visit Provider Internal Medicine Cardiovascular Disease | DX: R06.02 Shortness of breath (principal); R94.39 Abnormal result of other cardiovascular function study; R06.09 Other forms of dyspnea; E11.40 Type 2 diabetes mellitus with diabetic neuropathy, unspecified; Z79.4 Long term (current) use of insulin; E78.5 Hyperlipidemia, unspecified | CPT/HCPCS: 36415; 80048; 83880; 99204 ==

== ENCOUNTER 2024-06-27 05:56 | Outpatient (CLI) | payer OTHER, SELFPAY ==
--- NOTE | 2024-06-27 06:15 | USCV_ITS ---
Ismael Richards Age: 64 Gender: M : 1960 Exam Date: 06/27/2024 06:11 Ordering Phys: Mauri Mulligan MD ([email or web address]) Technologist: [place] [facility] [place]: ? hx of mi BP: 130 / 80 HR: 220 Rhythm: Sinus Technical Quality: Adequate MEASUREMENTS (Male / Female) Normal Values 2D ECHO LV Diastolic Diameter PLAX 5.0 cm 4.2 - 5.9 / 3.9 - 5.3 cm IVS Diastolic Thickness 0.9 cm 0.6 - 1.0 / 0.6 - 0.9 cm IVS Systolic Thickness 1.7 cm LVPW Diastolic Thickness 1.5 cm 0.6 - 1.0 / 0.6 - 0.9 cm LVPW Systolic Thickness 1.6 cm LVOT Diameter 2.0 cm LV Ejection Fraction 2D Teich 66.4 % LV Ejection Fraction MOD 4C 59.5 % LV Ejection Fraction MOD 2C 64.6 % LV Ejection Fraction 2C AL 64.4 % LA Diameter 3.0 cm RA Systolic Volume 4C AL 50.6 ml RA Systolic Volume 4C MOD 48.4 ml Aorta at Sinotubular Diameter 2.9 cm IVC Diameter 2.2 cm M-MODE LA Ao Ratio MM 1.0 MV E Point Septal Separation 0.9 cm AV Cusp Separation MM 2.5 cm DOPPLER AV Peak Velocity 115.3 cm/s LVOT Peak Velocity 48.0 cm/s AV Area Cont Eq vti 1.5 cm squared AV Area Cont Eq pk 1.4 cm squared MV Peak Velocity 105.0 cm/s MV Area PHT 3.2 cm squared Mitral E to A Ratio 1.0 TV Peak Velocity 251.0 cm/s TR Peak Velocity 252.0 cm/s TR Peak Gradient 25.4 mmHg TV Peak E Velocity 92.0 cm/s PV Peak Velocity 207.0 cm/s FINDINGS Left Ventricle Normal left ventricular size and systolic function, EF 65%. No regional wall motion abnormalities. Right Ventricle The right ventricle is normal in size and function. Right Atrium The right atrium is normal in size. Left Atrium The left atrium is normal in size. Mitral Valve Trace mitral valve regurgitation. Aortic Valve No gross abnormalities noted Tricuspid Valve No gross abnormalities noted Pulmonic Valve Pulmonic valve not well visualized. Pericardium Normal pericardium without effusion. Aorta Normal ascending aorta dimension. IVC Normal inferior vena cava. CONCLUSIONS Normal left ventricular size and systolic function, EF 65%. No regional wall motion abnormalities. Trace mitral valve regurgitation. Normal cardiac chamber sizes. No intracardiac masses. There is no pericardial effusion. No similar previous studies are available for comparison Dr Mauri Mulligan MD FAC (Electronically Signed) Final Date: 28 June 2024 11:03 S
== END 2024-06-27 05:57 | disposition home or self-care (01) ==
LOC: RAD 05:56
PROVIDERS: PCP Nurse Practitioner; Visit Provider Internal Medicine Cardiovascular Disease
DX: R06.09 Other forms of dyspnea (principal)
CPT/HCPCS: 93306

== ENCOUNTER → 2024-07-13 08:54 | Outpatient (BNVA) | payer OTHER, SELFPAY | PROVIDERS: PCP Nurse Practitioner; Visit Provider Nurse Practitioner Family | DX: I25.10 Atherosclerotic heart disease of native coronary artery without angina pectoris (principal); R94.39 Abnormal result of other cardiovascular function study; R06.09 Other forms of dyspnea; R53.83 Other fatigue; Z87.891 Personal history of nicotine dependence | CPT/HCPCS: 99214 ==

== ENCOUNTER 2024-07-30 07:05 | Outpatient (CLI) | payer OTHER, SELFPAY ==
[2024-07-30 07:42] LABS: Basophils # 0.1 10^3/uL (0.0-0.1); Basophils % 0.9 %; Eosinophils # 0.1 10^3/uL (0.0-0.8); Eosinophils % 1.9 %; Hematocrit 44.4 % (37-53); Lymphocytes # 1.8 10^3/uL (0.8-4.8); Mean Corpuscular HGB Conc 31.3 g/dL (30-55); Mean Corpuscular Hemoglobin 30.6 pg (27-33); Mean Corpuscular Volume 97.8 fl (82-101); Monocytes # 0.3 10^3/uL (0.2-0.9); Monocytes % 5.3 %; Neutrophils # 4.05 10^3/uL (1.8-7.7); Neutrophils % 63.4 %; Nucleated Red Blood Cells % 0 %; Platelet Count 247 10^3/cmm (157-399); Red Blood Count 4.54 10^6/uL (3.85-5.65); Red Cell Distribution Width 13.2 % (12.1-15.1); White Blood Count 6.39 10^3/uL (3.29-11.43)
[2024-07-30 07:53] LABS: INR 0.86 (0.83-1.21)
[2024-07-30 08:02] LABS: Anion Gap 16.1 (5-19); Blood Urea Nitrogen 17 mg/dL (8-23); Calcium 9.7 mg/dL (8.5-10.5); Carbon Dioxide 26 mmol/L (22-29); Chloride 101 mmol/L (98-107); Glomerular Filtration Rate 75.5 mL/min (90-130); Glucose 140 mg/dL (65-115); Osmolality Calculated 292 mOsm/kg (285-295); Potassium 4.1 mmol/L (3.5-5.1); Sodium 139 mmol/L (136-145)
== END 2024-07-30 07:06 | disposition home or self-care (01) ==
LOC: LAB 07:05
PROVIDERS: PCP Nurse Practitioner; Visit Provider Nurse Practitioner Family
DX: R94.39 Abnormal result of other cardiovascular function study (principal); I73.9 Peripheral vascular disease, unspecified; R06.09 Other forms of dyspnea; E78.5 Hyperlipidemia, unspecified
CPT/HCPCS: 36415; 80048; 85025; 85610; 86850; 86900

== ENCOUNTER 2024-08-02 05:44 | Outpatient (CLI) | payer OTHER, SELFPAY ==
--- NOTE | 2024-08-01 11:37 | PC.NURSE ---
Patient did not answer when called; voicemail left with patient.
--- NOTE | 2024-08-01 12:18 | PC.NURSE ---
called patient to give pre op cath instructions, no answer.
[2024-08-02] VITALS (24 sets, daily range): BP systolic 81–126; BP diastolic 51–80; PULSE 55–67; RESP 14–19; TEMP 36.5; O2SAT 94–98; BMI 28.7
--- NOTE | 2024-08-02 06:00 | XACV_ITS ---
Exam Room: 2 Ht: 178 cm Wt: 91 kg BSA: 2.14 m2 Gender: Male : 1960 Any Known Allergies: No known allergies Exam Priority: Routine Procedure(s): Procedure Description: Diagnostic procedure Procedure Description: Left Heart Catheterization Procedure Description: Left ventriculography Procedure Description: Coronary Angiography Procedure Description: Pressure Wire Isaak BRAUN; Diagnostic Cath Status: Elective Diagnostic Findings * The left main is a medium caliber vessel with no significant stenotic lesions. * The left aneurysm the artery is a medium caliber vessel with moderate diffuse calcification the proximal and the mid segment of the artery. The mid segment of the artery was found to have 60 to 70% diffuse irregular narrowing. The distal artery was found to have mild diffuse intimal irregularities. The first diagonal branch was found to have mild diffuse interval right disease proximally. The other diagonals were of small caliber with no significant or lesions. * The left circumflex artery is a medium to large caliber dominant vessel with a minimal intimal irregularities in the proximal and the distal segment. The first OM branch has a high takeoff and was found to have around 40% diffuse disease proximally with no other significant lesions. The second obtuse marginal artery was found to have around 30% proximal narrowing. No other significant lesions were noted in the vessel. * The right coronary artery is a large dominant small to medium caliber vessel which was found to have mild to moderate diffuse disease with no significant lesions. It gives of a PLV branch which also was found to have mild diffuse disease. PCI Status: Elective Interventional Findings * Procedure detail: We engaged left main artery with XB 3.5 guide catheter. Heparin was used for anticoagulation. After normalization IFR wire was advanced into distal LAD. iFR value of 0.93 was obtained. iFR pullback value also correlated with baseline IFR and was 0.93. At this time final angiogram was performed and guidewire and guide catheter were removed. 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 Conclusions 1. This 64-year-old white male with a history of hypertension, diabetes, dyslipidemia, previous history of myocardial infarction?, Is present with complaints of chest pain, dyspnea on exertion and easy fatigability. He had a Myocardial perfusion imaging which revealed areas of fixed defect with no significant reversible defects. Patient continued to have the symptoms with increasing frequency. In view of the ongoing symptoms and his multiple risk factors, in order to further evaluate his coronary status, a cardiac catheterization was recommended. Patient underwent left heart catheterization with left and right coronary angiogram and LV angiogram today. The findings are as follows. 2. No severe left main disease. 60 to 70% diffuse disease in the mid LAD with a mild to moderate calcification in the proximal and mid LAD. Mild diffuse disease in the other vessels. LVEDP of 20 mmHg. LV ejection fraction of 50%. 3. I reviewed and discussed the cardiac catheterization data with . Based on the angiogram findings, it was thought to be appropriate to consider IFR of the LAD lesion. Dr. Vale concurred with this plan and took over further management this patient. The IFR was found to be 0.93.. 4. Non-significant iFR vaue of 0.93. Medical therapy indicated. Recommendations * Aggressive medical therapy for coronary artery disease. * Outpatient cardiology follow up in 2 weeks. Interventional RX Recommendation: medical therapy and/or counseling Diagnostic RX Recommendation: medical therapy and/or counseling Anticoagulation: Heparin Ventriculography Ejection Fraction: 50.0 % LV EDP: 20 mmHg Left Ventriculography Findings: * The LV gram was performed the MOHAMUD position. The LV cavity appears to be of normal size. The LVEDP of 20 mmHg. LV ejection fraction was around 50%. No filling defects were noted. No significant mitral valve prolapse or mitral regurgitation. Pressures Phase:Rest AO : 96 / 73 ( 84 ) @ 7:33:00 AM 125 / 69 ( 95 ) @ 7:44:00 AM 117 / 69 ( 92 ) @ 7:44:00 AM 147 / 72 ( 102 ) @ 7:47:00 AM 75 / 47 ( 60 ) @ 7:50:00 AM 98 / 66 ( 80 ) @ 8:05:00 AM LV : @ 7:43:00 AM 117 22 @ 7:44:00 AM 117 22 @ 7:44:00 AM Valves Phase:DefaultPhase AV : 0.0 @ 8:11:58 AM AV Mean Gradient: 0.0 @ 8:11:58 AM Clinical Evaluation EBL: 5mL-10mL Procedural Details Procedure Consent Obtained. Pre-Procedure Time Out. Identified patient by full name and date of as verbalized by the patient/guarantor. Does the consent match the physician's order: Yes. Accurate & Complete Informed Consent: Yes. Inpatient/Outpatient History & Physical on Chart: Yes. If H&P is completed, is and addenduem needed: No. Visualize and Verify Site with Patient/Guarantor: N/A. Relevant Radiology Images available: Yes. The risks, benefits, and alternatives of sedation and/or procedure were discussed by physician. The patient agrees to continue. Procedure started. [facility] Clinical Fraility Score: 3: Managing Well. Bailer Tenders Supervisor Indications: New Onset Angina/Abnormal stress test. Chest Pain Symptom Assessment: Typical Angina Symptoms. Cardiovascular Instability: No. Correct patient, site and procedure confirmed by cath team. PERRLA. Strong, equal hand recreational therapy technician bilaterally. Lungs clear x 5 lobes. IV Site on Arrival: 20 gauge in the right anticubital. IV Fluids: 0.9% NaCl at KVO. 0 mL infused prior to mill laborer. Pre Procedural Pulses: bilateral dorsalis pedis was 3+. Pre Procedural Pulses: bilateral posterior tibial was 1+. Pre Procedural Pulses: bilateral radial was 3+. Oxygen started at 2liters/min via nasal canula. right groin was prepped with chloroprep then draped in the usual sterile fashion. right radial was prepped with chloroprep then draped in the usual sterile fashion. Physician notified. Baseline sample Acquired. HR: 57 BPM. Patient's Spouse, Karen, is leaving the hospital. Dr. Mulligan will update her at the completion of the procedure. Equipment: 6F - Radial. Cardiac Cath Pack. ACIST Manifold Kit Model BT 2000. Heparinized Saline (2 units/mL), 1000 mL bag. Physician arrived. Physician scrubbed in. Immediate Pre-Procedure Time Out. Correct Patient: Yes; Correct Procedure: Yes; Correct Site: Yes; Correct Patient Position: Yes; Correct Supplies: Yes; Dried Flammable Prep: Yes; Blood Products Available: N/A;. Lidocaine 1% infiltrated to the right radial. Arterial access obtained. A 5 paraguayan David catheter in over the exchange J wire. Multiple views taken of left coronary artery. Dr. Vale called to view cineography. Catheter redirected to the RCA. Unable to cannulate RCA. Catheter removed over the exchange J wire. A 5 paraguayan JR4 catheter in over the exchange J wire. Multiple views taken of right coronary artery. Catheter removed over the exchange J wire. A 5 par[place]ayan Angled Pig catheter in over the exchange J wire. EDP Sample taken: LV 117/5,20; HR: 59 BPM; SpO2: 98%. LV gram performed in MOHAMUD @ 10 mL/second for a total of 30 mL. EDP Sample taken: LV 117/9,22; HR: 63 BPM; SpO2: 98%. Pullback taken: LV 117/8,22; AO 125/69(95); Mean: 0mmHg, Peak to Peak: 0mmHg, SEP: 4sec/min; HR: 63 BPM; SpO2: 98%. Dr. Vale here to view cineography. Dr. Mulligan scrubbed out. Catheter hooked up to Heparin flush at KVO to maintain patency. Dr. Vale scrubbed in. Dr. Mulligan updated the spouse by telephone. Catheter removed over the exchange J wire. 6 paraguayan XB 3.5 guide catheter was inserted over the exchange J wire. iFR guidewire was advanced through the guide catheter to lesion in the mid LAD. iFR of the Mid LAD = 0.93 with a pullback of 0.93. iFR wire out. Guide catheter out over the exchange J wire. Dr Vale scrubbed out. A TR Band was successful obtaining hemostatsis at the Right Radial artery insertion site. Post Procedure: Pulses reassessed and unchanged. PERRLA. Strong, equal hand recreational therapy technician bilaterally. No VTE prophylaxis required. Medication's Wasted: Lidocaine 1% = 15 mL. Medication's Wasted: Nitro = 49.8 mg. Medication's Wasted: Heparin = 2000 Units. Medication's Wasted: Other = Versed 1 mg. Medication's Wasted: Other = Fentanyl 50 mcg. Total IV fluids: 300 mL. Post-op diagnosis: Normal iFR of the Mid LAD. Complications: none. Estimated blood loss: 5mL-10mL. Responsiveness - Normal response to verbal stimuli; alert and oriented, PERRLA. Airway - Unaffected, no intervention required; spontaneous ventilation. Circulation: W/N/L, pulses unchanged. Nausea/Vomiting: No. Procedure completed. Patient transferred by wheelchair to 1st floor. Vital chart was stopped. Access Site Site: Right Radial artery Sheath Size: 6 Fr Hemostasis Method: TR Band Hemostasis Success: Successful Procedure Medications Start: 7:17 AM Stop: 7:17 AM Medication: Versed Amount: 1 mg Route: I.V. Start: 7:17 AM Stop: 7:17 AM Medication: Fentanyl Amount: 25 mcg Start: 7:26 AM Stop: 7:26 AM Medication: Versed Amount: 1 mg Route: I.V. Start: 7:28 AM Stop: 7:28 AM Medication: Fentanyl Amount: 25 mcg Start: 7:29 AM Stop: 7:29 AM Medication: Verapamil Amount: 5 mg Route: I.A. Start: 7:29 AM Stop: 7:29 AM Medication: Nitrogylcerin Amount: 200 mcg Route: I.A. Start: 7:32 AM Stop: 7:32 AM Medication: Heparin Amount: 5000 units Route: I.V. Start: 7:37 AM Stop: 7:37 AM Medication: 0.9% Saline Amount: ml Route: I.V. bolus Start: 7:51 AM Stop: 7:51 AM Medication: Heparin Amount: 4000 units Route: I.V. Start: 7:52 AM Stop: 7:52 AM Medication: Versed Amount: 1 mg Route: I.V. I, the attending physician, have reviewed and verified all procedure medications. Yes, all medications given per verbal order History/Risk Factors Hypertension: No Dyslipidemia: Yes Peripheral Arterial Disease (PAD): Yes Myocardial Infarction (IN): No Obesity: No Renal Disease: No Tobacco Use: Former Prior Interventions PCI: No CABG: No Valve Surgery: No Report Signatures Interventional Workflow Finalized by Pietro Vale MD on 08/02/2024 09:41 AM Diagnostic Workflow Finalized by Dr Mauri Mulligan MD [facility] on 08/02/2024 08:41 AM
[2024-08-02] MEDS: diphenhydrAMINE 50 mg Capsule PO (06:14)
--- NOTE | 2024-08-02 07:09 | W.PM.OPSUD ---
Surgery/Procedure H&P Update DATE OF PROCEDURE: August 02, 2024 DATE H&P PERFORMED: 07/13/24 H&P UPDATE INFORMATION: I have reviewed H&P completed within last 30 days, I have examined patient prior to procedure and No changes to prior documentation PREOP DIAGNOSIS: ASHD PRIMARY INDICATION FOR PROCEDURE: Multiple risk factors for coronary artery disease, history of previous MT, ongoing chest pain, dyspnea on exertion and fatigue. Abnormal Myocardial perfusion imaging. PLANNED PROCEDURE: Operation Date: 08/02/24 07:00 Proposed Procedures p Cardiac Catheterization - [facility] w/wo/ LV & Coros(Left) - Mauri Mulligan MD PATIENT REASSESSED PRIOR TO SEDATION, WITH NO CHANGE NOTED: Yes PHYSICAL EXAM: alert, oriented x 3, clear to auscultation bilaterally and regular rate & rhythm AIRWAY EVAL/ANESTHESIA PLAN: normal airway, see other exam findings, ASA III, Monitored Anesthesia, Local Anesthesia, Risks, benefits & alternatives of sedation and/or procedure discussed and Patient agrees to continue as planned
--- NOTE | 2024-08-02 08:30 | PC.NURSE ---
received pt from environmental laboratory technician A,Ox4, denies any pain or SOB. TR Band intact on right wrist w/15 mls of air. no hematoma,swelling or bleeding,radial pulse palpable+3.vs check,educated pt on act.restrictions to right wrist and to notify nurse WIL for unusual pain,burning sensation,swelling or bleeding to right wrist. call light provided and w/in reach.
--- NOTE | 2024-08-02 08:51 | PC.NURSE ---
Refused meds pt stated he has taken all his home meds prior to procedure this morning. all meds returned to [facility].
--- NOTE | 2024-08-02 09:30 | PM.PROC ---
Procedure Note: Date of procedure: 08/02/24 Pre-procedure diagnosis: Chest pain/abnormal stress test Post-procedure diagnosis: other (Moderate mid LAD stenosis) Procedure: Diagnostic cath performed by Dr Mulligan. iFR performed by Dr Vale Mid LAD has moderate stenosis. iFR value of 0.93. Medical therapy. Performing Provider: Pietro Vale Estimated blood loss (mL): 10 Complications: None Condition: stable Disposition: same day (Same day discharge) Coding Level of Care Code Acute Code for Sejal [place]
--- NOTE | 2024-08-02 14:48 | PC.NURSE ---
Discharge Note Patient discharged to home via wheelchair accompanied by . Discharge instructions reviewed with patient and/or energy conservation representative. Mobile pharmacy medications and/or prescriptions provided. Belongings/home medications returned. Instructed pt to hold metformin and resume on 08/05/[address] elizabeth order. post angiogram home care instructions discuss to pt.
== END 2024-08-02 14:48 | disposition home or self-care (01) ==
LOC: CCL 05:45 → CSU 08:26
PROVIDERS: Internal Medicine; PCP Nurse Practitioner; Visit Provider Internal Medicine Cardiovascular Disease
DX: I25.10 Atherosclerotic heart disease of native coronary artery without angina pectoris (principal); E78.5 Hyperlipidemia, unspecified; Z87.891 Personal history of nicotine dependence; Z79.82 Long term (current) use of aspirin; Z79.84 Long term (current) use of oral hypoglycemic drugs; F32.A Depression, unspecified; E11.9 Type 2 diabetes mellitus without complications; I73.9 Peripheral vascular disease, unspecified
CPT/HCPCS: 36415; 93458; 93571; 96365; 96374; 99152; 99153; C1769; C1887; C1894; J1644; J2250; J3010; J3490; J7030; Q0163; Q9967

== ENCOUNTER → 2024-08-07 07:09 | Outpatient (BNVA) | payer OTHER, SELFPAY | PROVIDERS: PCP Nurse Practitioner; Visit Provider Podiatrist Foot & Ankle Surgery | DX: E11.40 Type 2 diabetes mellitus with diabetic neuropathy, unspecified (principal); Z79.4 Long term (current) use of insulin; I73.9 Peripheral vascular disease, unspecified; M21.41 Flat foot [pes planus] (acquired), right foot; M21.42 Flat foot [pes planus] (acquired), left foot; Z79.84 Long term (current) use of oral hypoglycemic drugs | CPT/HCPCS: 99213 ==

== ENCOUNTER → 2024-08-09 13:36 | Outpatient (BNVA) | payer OTHER, SELFPAY | PROVIDERS: PCP Nurse Practitioner; Visit Provider Nurse Practitioner Family | DX: R94.39 Abnormal result of other cardiovascular function study (principal); R06.09 Other forms of dyspnea | CPT/HCPCS: 99213 ==

== ENCOUNTER → 2024-09-18 09:24 | Outpatient (BNVA) | payer OTHER, SELFPAY | PROVIDERS: PCP Nurse Practitioner; Visit Provider Surgery | DX: R03.0 Elevated blood-pressure reading, without diagnosis of hypertension (principal); R19.8 Other specified symptoms and signs involving the digestive system and abdomen | CPT/HCPCS: 99204 ==

== ENCOUNTER 2024-10-11 06:24 | Day surgery (SDC) | payer OTHER, SELFPAY ==
[2024-10-11 06:35] VITALS: BP 124/83; PULSE 72; RESP 17; TEMP 36.1; O2SAT 99; BMI 28.4
--- NOTE | 2024-10-11 06:36 | P.HPUD_ITS ---
Surgery/Procedure H&P Update DATE OF PROCEDURE: October 11, 2024 DATE H&P PERFORMED: 07/13/24 H&P UPDATE INFORMATION: I have reviewed H&P completed within last 30 days, I have examined patient prior to procedure, No changes to prior documentation and H&P is in [facility] [place] on date indicated PLANNED PROCEDURE: Operation Date: 10/11/24 07:40 Proposed Procedures p EGD [id number] G0121 R10.9 Z12.11(Not Applicable) - Ismael Jimenez MD s Colonoscopy(Not Applicable) - Ismael Jimenez MD
[2024-10-11 06:48] LABS: Glucose Point of Care 119 mg/dL (70-110)
[2024-10-11] MEDS: sodium chloride 0.9% 500 ML 15 ML IV (06:49)
--- NOTE | 2024-10-11 07:12 | ANES.PREANE2 ---
Pre-Anesthetic Assessment Height/Weight: Height 1.78 m Weight 89.811 kg Temp Pulse Resp BP Pulse Ox O2 Del Method 97.0 F L 72 17 124/83 99 Room Air 10/11/24 06:35 10/11/24 06:35 10/11/24 06:35 10/11/24 06:35 10/11/24 06:35 10/11/24 06:35 Preop Diagnosis: screening Operation Date: 10/11/24 07:40 Proposed Procedures p EGD [id number] G0121 R10.9 Z12.11(Not Applicable) - Ismael Jimenez MD s Colonoscopy(Not Applicable) - Ismael Jimenez MD Last intake: Intake Last Liquid Date 10/10/24 Last Liquid Time 20:00 Last Solid Date 10/09/24 Last Solid Time 18:00 Exam alert and oriented x 3 Airway Submandibular: within normal limits Cervical ROM: within normal limits Mallampati: Class II Dentition: chipped and loose History/ROS No significant history except as noted Pulmonary Chronic Obstructive Pulmonary Disease and Sleep Apnea (CPAP) CV/HEM Coronary Artery Disease (told he had a heart attack) and Murmur None reported Hepatic None reported GI None reported Metabolic Diabetes Mellitus and Hyperlipidemia [facility] Lower Back Pain Neuropsych Anxiety, Depression and Neuropathy Anesthetic Plan ASA status: 3 Anesthesia: MAC Risk of > 500 ml blood loss (7ml/kg in children): No Medications/Allergies Home Medications ?Medication ?Instructions ?Recorded ?Confirmed ?Last Taken ?Type atorvastatin 40 mg tablet 40 mg PO DAILY 01/14/22 10/11/24 10/10/24 History duloxetine 60 mg capsule,delayed 90 mg PO DAILY 01/14/22 10/11/24 10/10/24 History release glipizide 5 mg tablet 5 mg PO BID 01/14/22 10/11/24 10/09/24 History metformin 1,000 mg tablet 1,000 mg PO BID 01/14/22 10/11/24 10/09/24 History Held on 08/02/24. Instructions: Resume on 08/05/24. sildenafil 100 mg tablet 100 mg PO DAILY PRN Erectile 08/19/22 10/11/24 Unknown History Dysfunction right knee brace #1 ea 07/12/23 09/18/24 Unknown Rx aspirin 81 mg tablet,delayed 81 mg PO DAILY #30 tabs 11/06/24 03/13/25 03/12/25 Rx release (Adult Low Dose Aspirin) cholecalciferol (vitamin D3) 125 125 mcg PO .2XWEEKLY 06/06/24 10/11/24 10/10/24 History mcg (5,000 unit) capsule empagliflozin 25 mg tablet 25 mg PO DAILY 06/06/24 10/11/24 10/08/24 History eszopiclone 1 mg tablet (Lunesta) 1 mg PO DAILY 06/06/24 10/11/24 10/09/24 History ketoconazole 2 % topical cream 1 applic topical DAILY 06/06/24 10/11/24 10/08/24 History mecobalamin (vitamin B12) 500 mcg 500 mcg PO DAILY 06/06/24 10/11/24 10/10/24 History chewable tablet pioglitazone 30 mg tablet 30 mg PO DAILY 06/06/24 10/11/24 10/09/24 History gabapentin 300 mg capsule 300 mg PO TID 07/13/24 10/11/24 10/10/24 History Diabetic shoes #1 ea 08/07/24 09/18/24 Unknown Rx Allergies Allergy/AdvReac Type Severity Reaction Status Date / Time No Known Allergies Allergy Verified 10/09/24 08:36 Current Medications Generic Name Dose Route Start Last Admin Trade Name Freq PRN Reason Stop Dose Admin Sodium Chloride 500 mls @ 15 mls/hr 10/11/24 06:27 10/11/24 06:49 Sodium Chloride 0.9% IV 10/12/24 06:26 15 mls/hr .Q24H PRN Administration COLONOSCOPY FLUIDS PFSH Anesthesia Medical History (Updated 09/18/24 @ 10:18 by Ismael Jimenez MD) Diabetes mellitus with neuropathy Depression Erectile dysfunction Diabetes mellitus Surgical History (Updated 09/18/24 @ 09:36 by IRAIS Zuñiga) No pertinent past surgical history Family History Father , in his 70's Liver failure Mother No problems noted. Social History Smoking and tobacco/nicotine status: former use of tobacco/nicotine Alcohol intake: current Alcohol intake frequency: holidays/special occasions only Marital status: Current occupational status: disabled Data Anesthesia Cardiac Studies: Echocardiogram 06/27/24 Sestamibi Stress Test (Cardiology) 04/11/24
[2024-10-11 08:29] VITALS: BP 113/76; PULSE 68; RESP 18; TEMP 36.2; O2SAT 99
[2024-10-11 08:38] VITALS: BP 129/81; PULSE 64; RESP 18; TEMP 36.4; O2SAT 100
--- NOTE | 2024-10-11 08:55 | ANE.PACU2 ---
Inpatient post-anesthesia follow up: Airway intact: Yes Vital signs: Temperature 97.5 F Pulse Rate 64 Respiratory Rate 18 Blood Pressure 129/81 Pulse Oximetry 100 Oxygen Delivery Me thod Room Air Oxygen Flow Rate Fraction of Inspir ed Oxygen Hydration adequate: Yes Nausea and vomiting: No Pain level: 1 Mental status: Baseline
== END 2024-10-11 08:55 | disposition home or self-care (01) ==
PROVIDERS: PCP Nurse Practitioner; Visit Provider Surgery
PROC: 0DJ08ZZ Inspection of Upper Intestinal Tract, Via Natural or Artificial Opening Endoscopic (ICD-10-PCS; principal; 2024-10-11 07:40)
PROC: 0DJD8ZZ Inspection of Lower Intestinal Tract, Via Natural or Artificial Opening Endoscopic (ICD-10-PCS; CPT 45378; 2024-10-11 07:40)
DX: Z12.11 Encounter for screening for malignant neoplasm of colon (principal); D12.2 Benign neoplasm of ascending colon; D12.5 Benign neoplasm of sigmoid colon; D12.3 Benign neoplasm of transverse colon; K62.1 Rectal polyp; J44.9 Chronic obstructive pulmonary disease, unspecified; E11.9 Type 2 diabetes mellitus without complications; E78.5 Hyperlipidemia, unspecified; K29.50 Unspecified chronic gastritis without bleeding; I25.10 Atherosclerotic heart disease of native coronary artery without angina pectoris; G47.30 Sleep apnea, unspecified; Z79.899 Other long term (current) drug therapy; Z79.84 Long term (current) use of oral hypoglycemic drugs; Z79.82 Long term (current) use of aspirin; Z87.891 Personal history of nicotine dependence
CPT/HCPCS: 36416; 43239; 45380; 45385; 82962; 88305; 88342; J7040

== ENCOUNTER → 2024-10-15 13:53 | Outpatient (BNVA) | payer OTHER, SELFPAY | PROVIDERS: PCP Nurse Practitioner; Visit Provider Internal Medicine Cardiovascular Disease | DX: I25.10 Atherosclerotic heart disease of native coronary artery without angina pectoris (principal); R06.09 Other forms of dyspnea; E11.40 Type 2 diabetes mellitus with diabetic neuropathy, unspecified; Z79.4 Long term (current) use of insulin; E78.5 Hyperlipidemia, unspecified | CPT/HCPCS: 99214 ==

== ENCOUNTER → 2024-10-23 10:55 | Outpatient (BNVA) | payer OTHER, SELFPAY | PROVIDERS: PCP Nurse Practitioner; Visit Provider Surgery | DX: Z09 Encounter for follow-up examination after completed treatment for conditions other than malignant neoplasm (principal); A04.8 Other specified bacterial intestinal infections; L81.4 Other melanin hyperpigmentation; L82.1 Other seborrheic keratosis; L73.8 Other specified follicular disorders; D22.39 Melanocytic nevi of other parts of face | CPT/HCPCS: 99213; 99214 ==

== ENCOUNTER → 2024-11-13 07:15 | Outpatient (BNVA) | payer OTHER, SELFPAY | PROVIDERS: PCP Nurse Practitioner; Visit Provider Podiatrist Foot & Ankle Surgery | DX: E11.40 Type 2 diabetes mellitus with diabetic neuropathy, unspecified (principal); L60.3 Nail dystrophy; Z79.4 Long term (current) use of insulin; I73.9 Peripheral vascular disease, unspecified; M21.41 Flat foot [pes planus] (acquired), right foot; M21.42 Flat foot [pes planus] (acquired), left foot; Z79.84 Long term (current) use of oral hypoglycemic drugs | CPT/HCPCS: 11721 ==

== ENCOUNTER → 2025-02-12 07:25 | Outpatient (BNVA) | payer OTHER, SELFPAY | PROVIDERS: PCP Nurse Practitioner; Visit Provider Podiatrist Foot & Ankle Surgery | DX: E11.40 Type 2 diabetes mellitus with diabetic neuropathy, unspecified (principal); Z79.4 Long term (current) use of insulin; E11.8 Type 2 diabetes mellitus with unspecified complications; I73.9 Peripheral vascular disease, unspecified; M21.41 Flat foot [pes planus] (acquired), right foot; M21.42 Flat foot [pes planus] (acquired), left foot; L60.3 Nail dystrophy; Z79.84 Long term (current) use of oral hypoglycemic drugs | CPT/HCPCS: 11720; 99213 ==

== ENCOUNTER 2025-03-27 15:21 | Outpatient (CLI) | payer OTHER, SELFPAY ==
--- NOTE | 2025-03-27 15:27 | CT_ITS ---
WS: [id number] LDCT LUNG CANCER SCREENING HISTORY: NICOTINE DEPENDENCE TECHNIQUE: Axial imaging performed from the apices to 1 cm below the costophrenic angles. Coronal and sagittal reformats are submitted with axial MIP series. All CT scans at [facility] use at least one of these dose optimization techniques: automated exposure control; mA and/or kV adjustment per patient size (includes targeted exams where dose is matched to clinical indication); or iterative reconstruction. DLP: 86.41 mGy.cm DIvol: Mean CTDIvol: 1.80 (mGy) COMPARISON: None available. Diagnostic quality: Satisfactory Lungs: Lungs are clear. No pulmonary mass or nodule. No endobronchial lesions. Benign granuloma LEFT lower lobe. Heart: Normal size heart with no pericardial effusion.. Other findings: Pulmonary artery is dilated to 4.0 cm. Proximal LEFT pulmonary artery is also dilated to 3.4 cm. Moderate coronary artery calcifications. Very mild atherosclerosis aorta. Aorta is normal size. Benign calcified lymph nodes. No pathologically enlarged lymph nodes. Small hiatal hernia. 2.6 cm RIGHT adrenal adenoma. Normal LEFT adrenal gland. Gallbladder is slightly contracted which is probably due to nonfasting state. CT/CT lung screening [id number] IMPRESSION: LUNG-RADS: 1S-Negative with Significant Findings FOLLOW UP: 12 Month: Continue annual screening with LDCT OTHER FINDINGS (S MODIFIER): Main pulmonary artery and the LEFT pulmonary arter y are enlarged. Consider pulmonary hypertension.
== END 2025-03-27 15:22 | disposition home or self-care (01) ==
LOC: RAD 15:22
PROVIDERS: PCP Nurse Practitioner; Visit Provider Nurse Practitioner
DX: Z12.2 Encounter for screening for malignant neoplasm of respiratory organs (principal); F17.210 Nicotine dependence, cigarettes, uncomplicated; J84.10 Pulmonary fibrosis, unspecified; I28.8 Other diseases of pulmonary vessels; I25.10 Atherosclerotic heart disease of native coronary artery without angina pectoris; I89.8 Other specified noninfective disorders of lymphatic vessels and lymph nodes; I70.0 Atherosclerosis of aorta; K44.9 Diaphragmatic hernia without obstruction or gangrene; K82.8 Other specified diseases of gallbladder
CPT/HCPCS: 71271

== ENCOUNTER → 2025-05-14 07:39 | Outpatient (BNVA) | payer OTHER, SELFPAY | PROVIDERS: PCP Nurse Practitioner; Visit Provider Podiatrist Foot & Ankle Surgery | DX: E11.8 Type 2 diabetes mellitus with unspecified complications (principal); E11.40 Type 2 diabetes mellitus with diabetic neuropathy, unspecified; Z79.4 Long term (current) use of insulin; I73.9 Peripheral vascular disease, unspecified; M21.41 Flat foot [pes planus] (acquired), right foot; M21.42 Flat foot [pes planus] (acquired), left foot; L60.3 Nail dystrophy; Z79.84 Long term (current) use of oral hypoglycemic drugs | CPT/HCPCS: 99213 ==

== ENCOUNTER 2025-06-26 19:57 | Inpatient (IN) | payer OTHER, SELFPAY ==
--- OUTSIDE RECORDS SUMMARY | 2025-06-26 20:02 | XMS_ITS | Clinical Summary ---
Author Organization [facility] Address [address] Attn: [place] [address] Care Team Providers Care Coronary Care Unit Nurse Name Role Phone Unavailable Primary Care Provider Unavailabl e Allergies No known active allergies Medications metFORMIN (GLUCOPHAGE) 1,000 mg tablet Take 1,000 mg by mouth 2 times daily with meals. 5 Active prednisoLONE acetate (PRED FORTE) 1 % suspension Administer 1 Drop in left eye see administration instructions QID x 7 days, TID x 7 days, BID x 7 days, q-day x 7 days, stop. 10 mL 3 5 Active ofloxacin (OCUFLOX) 0.3 % solution Administer 1 Drop in left eye 4 times daily. 5 mL 1 5 Active HYDROcodone-ac etaminophen (NORCO) 7.5-325 mg Tablet Take 1 Tablet by mouth every 4 hours as needed for Pain, Moderate. 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 k 07/02/2015 Social History Tobacco Use Types Packs/Day Years Used Date Smoking Tobacco: Former Alcohol Use Standard Drinks/Week Comments Yes 0 (1 standard drink = 0.6 oz pur e alcohol) Sex and Gender Information Value Date Recorded Sex Assigned at Not on file Legal Sex Male 2:08 AM WELLNESS TRAINER Gender Identity Not on file Sexual Orientation Not on file Last Filed Vital Signs Vital Sign Reading Time Taken Comments Blood Pressure 173/87 08/22/2015 8:00 AM WELLNESS TRAINER Pulse 53 07/02/2015 3:50 PM WELLNESS TRAINER Temperature 36.1 C (97 F) 07/02/2015 3:20 PM WELLNESS TRAINER Respiratory Rate 18 07/02/2015 3:50 PM WELLNESS TRAINER Oxygen Saturation - - Inhaled Oxygen Concentration - - Weight 83 kg (183 lb) 08/22/2015 8:00 AM WELLNESS TRAINER Height 177.8 cm (5' 10 ) 08/22/2015 8:00 AM WELLNESS TRAINER Body Mass Index 26.26 08/22/2015 8:00 AM WELLNESS TRAINER Plan of Treatment Health Maintenance Due Date Last Done Comments DTAP/TDAP/TD VACCINES (1 - Tdap) 01/14/1980 COLORECTAL SCREENING 2006 Colorectal Cancer Screening 2006 FIT-DNA Q 3 years 2006 FIT/FOBT Q 1 year 2006 Flex Sig/CT Colonography Q 5 years 2006 ZOSTER VACCINE (1 of 2) 2011 INFLUENZA VACCINE (#1) 2025 RSV VACCINE (60+ or ) (1 - 1-dose 75+ series) 01/14/2036 Medical Devices Implanted Type Area Director Of Tax Services Device Identifier Shelf Expiration Date Model / Serial / Lot Ins Tib Sigma Rps Sz2.5 -122 - [id number] Implanted:Qty: 2 on 07/02/2015 by Sung De La Garza MD Knee Left: Eye [employer] 09/28/2019 2 / / [id number]
--- OUTSIDE RECORDS SUMMARY | 2025-06-26 20:02 | XMS_ITS | Clinical Summary ---
Author Organization [facility] Address [address] [place] [address] Care Team Providers Care Sql Programmer Analyst Name Role Phone Unavailable Primary Care Provider Unavailabl e Allergies No known active allergies Medications metFORMIN (GLUCOPHAGE) 1,000 mg tablet Take 1,000 mg by mouth 2 times daily with meals. Active prednisoLONE acetate (PRED FORTE) 1 % [...] drink = 0.6 oz pur e alcohol) rarely Sex and Gender Information Value Date Recorded Sex Assigned at Not on file Legal Sex Male 10:56 AM KNOTTER HAND Gender Identity Not on file Sexual Orientation Not on file Last Filed Vital Signs Vital Sign Reading Time Taken Comments Blood Pressure 173/87 08/22/2015 8:00 AM KNOTTER HAND Pulse 53 07/02/2015 3:50 PM KNOTTER HAND Temperature 36.1 C (97 F) 07/02/2015 3:20 PM KNOTTER HAND Respiratory Rate 18 07/02/2015 3:50 PM KNOTTER HAND Oxygen Saturation 100% 07/02/2015 3:50 PM KNOTTER HAND Inhaled Oxygen Concentration - - Weight 83 kg (183 lb) 08/22/2015 8:00 AM KNOTTER HAND Height 177.8 cm (5' 10 ) 08/22/2015 8:00 AM KNOTTER HAND Body Mass Index 26.26 08/22/2015 8:00 AM KNOTTER HAND Plan of Treatment Health Maintenance Due Date [...] series) 01/14/2036 Medical Devices Implanted Type Area Inspector Chief Device Identifier Shelf Expiration Date Model / Serial / Lot Ins Tib Sigma Rps Sz2.5 -122 - [id number] Implanted:Qty: 2 on 07/02/2015 by Sung De La Garza MD at [facility] Knee Left: Eye [employer] 09/28/2019 [id number] Insurance PREVENTION OF BLINDNESS Advance Directives For more information, please contact: [phone] * Full Code (Latest Code Status on File) Date Activated Date Inactivated Comments 07/02/2015 12:39 PM 07/02/2015 6:29 PM * Full Code Date Activated Date Inactivated Comments 07/02/2015 8:27 AM 07/02/2015 12:39 PM
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
--- NOTE | 2025-06-26 20:30 | ECG_ITS ---
[facility] Date: 2025-[facility]26 Pat Name: Ismael Richards Department: Room: 170 Gender: Male Internal Carver: : 1960 Requested By: Gal Villalpando Order Number: [id number] Samanta MD: Antonio Valadez M.D. Measurements Intervals [place] Rate: 95 P: 39 OR: 159 QRS: 61 QRSD: 101 T: 49 QT: 352 QTc: 443 Interpretive Statements SINUS RHYTHM Compared to ECG 01/06/2022 15:16:22 Sinus arrhythmia no longer present Electronically Signed On 06-27-2025 17:57:15 INDUSTRIAL COFFEE GRINDER by Antonio Valadez M.D. [email or web address]
--- NOTE | 2025-06-26 20:34 | PC.NURSE ---
96 HH rights read to pt by this rn and J.W. cloud security architect. pt verbalized understanding of rights, had no further questions. copy of rights left in pt locker.
[2025-06-26 20:37] LABS: Hematocrit 47.5 % (37-53); Hemoglobin 15.30 g/dL (11.27-16.99); Mean Corpuscular HGB Conc 32.2 g/dL (30-55); Mean Corpuscular Hemoglobin 31.2 pg (27-33); Mean Corpuscular Volume 96.9 fl (82-101); Nucleated Red Blood Cells % 0 %; Platelet Count 278 10^3/cmm (157-399); Red Blood Count 4.90 10^6/uL (3.85-5.65); White Blood Count 10.81 10^3/uL (3.29-11.43)
[2025-06-26 20:48] LABS: Alanine Aminotransferase 23 U/L (0-41); Albumin Level 4.8 g/dL (3.5-5.2); Alkaline Phosphatase 85 U/L (40-130); Anion Gap 28.8 (5-19); Aspartate Amino Transferase 19 U/L (0-40); Blood Urea Nitrogen 21 mg/dL (8-23); Calcium 9.8 mg/dL (8.5-10.5); Carbon Dioxide 12 mmol/L (22-29); Chloride 99 mmol/L (98-107); Globulin 3.6 g/dL (1.3-4.6); Glucose 304 mg/dL (65-115); Osmolality Calculated 296 mOsm/kg (285-295); Potassium 3.8 mmol/L (3.5-5.1); Sodium 136 mmol/L (136-145); Total Protein 8.4 g/dL (6.6-8.7)
[2025-06-26 20:49] LABS: Acetaminophen < 5.0 ug/mL (10-30); Alcohol Level < 10 mg/dL (0-10); Salicylate < 0.3 mg/dL (3-10)
[2025-06-26 21:51] VITALS: BP 138/84; PULSE 74; O2SAT 95
--- NOTE | 2025-06-26 22:04 | DCPLANNER ---
I called the AOD at the [facility] Juan Le/ Terence Cote and Jackie stated it is approved for the patient to be admitted at our psych unit. phone [phone]
[2025-06-26 22:58] VITALS: BP 144/93; PULSE 95; RESP 20; TEMP 36.6; O2SAT 97
--- NOTE | 2025-06-27 02:14 | PC.NURSE ---
Pt complained of not being able to breathe and demande a c-pap, but when it got here with respiratory, he refused. Vitals were taken and the cpap machine was put up. Vitals were T-97.9 rr-20 hr-95 bp 144/93 O2-97% on room air.
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
[2025-06-27 06:00] VITALS: BP 141/95; PULSE 90; RESP 17; O2SAT 99
--- NOTE | 2025-06-27 07:41 | PC.NURSE ---
Dr. Saini gave ok to restart pt.'s medications. Medications reconciled.
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
[2025-06-27 09:20] LABS: Glucose Urine UA 3+ (Normal); Nitrate Urine Negative (Negative)
[2025-06-27 09:25] LABS: Add Urine Microscopic? YES
[2025-06-27 09:26] LABS: Specific Gravity, Urine 1.041 (1.005-1.030)
[2025-06-27 09:42] LABS: PCP Screen Urine Negative (Negative)
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
--- NOTE | 2025-06-27 12:01 | PC.NURSE ---
Dr. Saini gave order to DC one to one sitter.
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
--- NOTE | 2025-06-27 13:54 | PC.NURSE ---
when doing rounds on pt, pt stated he was hungry this software writer asked him if he would like a sandwich because he didnt eat lunch. pt stated that he didnt wanted to go to the dayroom to eat and in the morning he said that the staff told him that he couldnt eat in room. this software writer told him that he could. charge also told this software writer that he could. pt in now sitting on side of be eating a sandwich and chips.
[2025-06-27 14:00] VITALS: BP 140/80; PULSE 80; RESP 16; O2SAT 96
--- NOTE | 2025-06-27 18:07 | PC.NURSE ---
At 1800 rounds signee checked on pt. and asked he leave his door cracked and pt. swung up out of his bed and started to yell saying he was tired of this one person says one thing and another person will say something else. Pt. has been trying to start arguments with staff over anything.
--- NOTE | 2025-06-28 06:19 | PC.NURSE ---
pt refused vs and requested to be left alone and not to be woken up, resp 17
[2025-06-28 14:00] VITALS: BP 126/85; PULSE 97; RESP 16; TEMP 37; O2SAT 98
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
--- NOTE | 2025-06-28 22:24 | PC.NURSE ---
vs not collected per nurse resp 16
[2025-06-29 06:00] VITALS: BP 116/79; PULSE 94; RESP 17; TEMP 36.7; O2SAT 97
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
[2025-06-29 14:00] VITALS: BP 131/84; PULSE 99; RESP 16; TEMP 36.9; O2SAT 98
[2025-06-29 20:44] VITALS: BP 138/82; PULSE 103; RESP 17; TEMP 36.8; O2SAT 99
[2025-06-30 06:00] VITALS: BP 125/85; PULSE 97; RESP 18; TEMP 37; O2SAT 94
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
[2025-06-30 14:00] VITALS: BP 146/91; PULSE 110; RESP 18; TEMP 36.7; O2SAT 97
[2025-06-30 20:30] VITALS: BP 123/78; PULSE 93; RESP 17; TEMP 36.6; O2SAT 99
[2025-07-01 06:00] VITALS: BP 125/86; PULSE 101; RESP 17; TEMP 36.6; O2SAT 97
[2025-07-01 13:31] VITALS: BP 125/83; PULSE 89; RESP 16; TEMP 36.6; O2SAT 100
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
[2025-07-01 20:54] VITALS: BP 128/85; PULSE 95; RESP 17; TEMP 36.7; O2SAT 98
[2025-07-02 06:00] VITALS: BP 148/87; PULSE 124; RESP 18; TEMP 36.6; O2SAT 96
[2025-07-02 14:00] VITALS: BP 135/84; PULSE 100; RESP 16; TEMP 36.8; O2SAT 95
--- NOTE | 2025-07-02 17:42 | P.NPUPN_ITS ---
Subjective NPU 2 Subjective: Patient presented today continuing to report a desire to discharge as soon as it is reasonable. He identified that he would be safe when he went home but did not put up the fuss that he had been having on previous days. He was a little more pleasant per staff reports and direct observation. Also less irritable per observation. We discussed a plan to work with his on an assessment of the home environment and any safety concerns as we get her up towards discharge by Tuesday. He denied any side effects to his medication. Mental Status Exam 2 MSE Comments: Patient was lying in bed in his room with a disheveled appearance and limited hygiene. There was no evidence of any abnormal involuntary motor movements, tics, or tremors appreciated. His speech was normal in regards to rate, rhythm, and prosody. His mood was described as a lot better. His affect was less irritable and more mood congruent. His thought process was linear, logical, and goal-directed. He denied suicidal ideation and acknowledged the report of him having a plan to light himself on fire. There was no clear evidence of delusional thinking. He did not appear to be responding to internal stimuli. His attention span appeared fair. His insight is limited but improving. His judgment appeared poor. His impulse control appeared impaired. His recent and remote memory were grossly intact. Vitals/I&O/Wt Last Vital Signs Temp 98.2 F 07/02/25 14:00 Pulse 100 07/02/25 14:00 Resp 16 07/02/25 14:00 BP 135/84 07/02/25 14:00 Pulse Ox 95 07/02/25 14:00 O2 Del Method Room Air 07/02/25 14:00 Data NPU 06/26/25 20:24 06/26/25 20:24 A&P Assessment and plan 1. Cyclothymic disorder: 2. Suicidal ideation: 3. Impulse control disorder, unspecified: Plan: 65-year-old male with a history of depression with irritability recently admitted with a significant attempt at suicide with history of poor impulse control and reports of racing thoughts. #1.? Engage patient in individual milieu and group therapy. #2?? Recommend sober living treatment at the highest level of care to which the patient is willing to commit #3??? Restarted outpatient medications other than Lunesta and begin abilify 5mg as a mood stabilizer with likely titration necessary p.o. daily. Increased Abilify to 10 mg. ??? #4?? TO-15 minute checks? #5?? Will attempt to gather collateral information. Team spoke with his who acknowledges some improvement and we will discuss the living arrangement after discharge including safety considerations at home and whether there are any weapons or other safety considerations. PDMP PDMP Reviewed: Not Reviewed Involuntary Hold Information 2 Hold Status: Legal Status: 96 Hour Hold Date/Time Hold Expires: 07/04/2025 @ 1957 Attestations NPU 2 Medical Necessity Statement*: Inpatient hospitalization is medically necessary and the clinically appropriate intervention at this time. We will monitor/initiate medications and make changes as indicated. The patient?s likely length of stay is 1-3 days.? Coding Level of Care Code Acute Code for Chg Fwd Diagnoses Cyclothymic disorder F34.0 Suicidal ideation R45.851 Impulse control disorder, unspecified F63.9
[2025-07-02 20:24] VITALS: BP 118/86; PULSE 105; RESP 18; TEMP 36.6; O2SAT 97
[2025-07-03 06:00] VITALS: BP 136/94; PULSE 90; RESP 17; TEMP 36.7; O2SAT 99
[2025-07-03 14:00] VITALS: BP 135/84; PULSE 113; RESP 16; TEMP 36.8; O2SAT 97
[2025-07-03 15:09] VITALS: BP 135/84; PULSE 113; RESP 18; TEMP 36.8; O2SAT 97
== END 2025-07-03 17:11 | disposition home or self-care (01) | DRG 886 ==
LOC: ER 22:07 → NP 22:19
PROVIDERS: Admitting Provider Psychiatry & Neurology Psychiatry; Emergency Provider Family Medicine; PCP Nurse Practitioner; Visit Provider Psychiatry & Neurology Psychiatry
DX: F63.9 Impulse disorder, unspecified (principal); R45.851 Suicidal ideations; F32.A Depression, unspecified; Z79.84 Long term (current) use of oral hypoglycemic drugs; Z79.82 Long term (current) use of aspirin; E11.40 Type 2 diabetes mellitus with diabetic neuropathy, unspecified; F34.0 Cyclothymic disorder
CPT/HCPCS: 36415; 36416; 80053; 80306; 80307; 81001; 82962; 85025; 93005; 97150; 97165; 99285; J9999